=== PATIENT | female | born 1960 | race Caucasian/White ===

== ENCOUNTER → 2019-04-22 11:19 | Outpatient (BNVA) | payer OTHER, MEDICARE, SELFPAY | PROVIDERS: Family Provider Family Medicine; PCP Family Medicine; Visit Provider Internal Medicine Rheumatology | DX: L40.50 Arthropathic psoriasis, unspecified (principal); L40.0 Psoriasis vulgaris; Z79.899 Other long term (current) drug therapy; I10 Essential (primary) hypertension; F17.210 Nicotine dependence, cigarettes, uncomplicated | CPT/HCPCS: 99213; 99214 ==

== ENCOUNTER 2019-10-14 09:17 | Emergency (ER) | payer OTHER, MEDICARE, SELFPAY ==
[2019-10-14] VITALS (7 sets, daily range): BP systolic 157–180; BP diastolic 87–105; PULSE 61–71; RESP 14–32; TEMP 36.7; O2SAT 96–100; BMI 29.0
--- NOTE | 2019-10-14 09:51 | CT_ITS ---
WS: [id number] CT LUMBAR SPINE, noncontrast. HISTORY: R leg radiculopathy TECHNIQUE: Contiguous 2.5 mm axial imaging are performed. Sagittal and coronal reformats are submitte d and reviewed. All CT scans at [facility] use at least one of these dose optimization te chniques: automated exposure control; mA and/or kV adjustment per patient size (includes targeted exa ms where dose is matched to clinical indication); or iterative reconstruction. IV contrast: None DLP: 2631.7 mGy.cm COMPARISON: None available. Straightening of the normal lumbar lordosis. No vertebral body fractures. Disc desiccation and vacuum disc phenomenon at L1-2, L2-3, L4-5 and L5-S1. Endplate sclerotic changes are most significant at L4 and L5 and S1. L1-2: Annular disc bulging without stenosis. L2-3: Small vertebral body osteophytes with mild annular disc bulge. Slightly asymmetric to the LEFT without nerve root contact. L3-4: Diffuse annular disc bulging asymmetric to the LEFT. LEFT subarticular disc protrusion contacti ng the L4 nerve root. Mild bilateral foraminal narrowing and central stenosis. L4-5: Diffuse annular disc bulging and mild osteophytic ridging. Disc and osteophyte encroaching into the RIGHT foramen causing significant RIGHT foraminal stenosis with moderate stenosis on the LEFT. M ild central stenosis. L5-S1: Diffuse osteophytic ridging. Severe facet joint arthritis. Combination of findings is causing severe bilateral foraminal stenosis. Complete effacement loss of the normal fat in the foramen. Small osteophyte encroaching upon the LEFT S1 nerve root. Moderate atherosclerosis aorta with no aneurysm. CT/CT lumbar spine wo con* [id number] IMPRESSION: 1. No acute lumbar spine fracture. 2. Severe bilateral foraminal stenosis at L5-S1 due to disc osteophyte disease . 3. Mild contact on the LEFT S1 nerve root by osteophyte. 4. Mild central stenosis with moderate to severe bilateral foraminal stenosis at L4-5, greatest on the RIGHT. 5. Mild bilateral foraminal and central stenosis at L3-4.
--- NOTE | 2019-10-14 10:11 | PC.NURSE ---
pt back from CT by stretcher with tech
[2019-10-14 10:24] LABS: Basophils # 0.1 10^3/uL (0.0-0.1); Basophils % 0.5 %; Eosinophils # 0.2 10^3/uL (0.0-0.8); Eosinophils % 1.7 %; Hematocrit 39.6 % (37.0-47.0); Hemoglobin 13.3 g/dL (11.5-15.3); Lymphocytes # 2.3 10^3/uL (0.8-4.8); Lymphocytes % 16.5 %; Mean Corpuscular HGB Conc 33.6 g/dL (30.0-36.0); Mean Corpuscular Hemoglobin 30.5 pg (28.0-34.0); Mean Corpuscular Volume 90.8 fL (81-99); Monocytes # 0.9 10^3/uL (0.2-0.9); Monocytes % 6.4 %; Neutrophils # 10.16 10^3/uL (1.8-7.7); Neutrophils % 74.4 %; Nucleated Red Blood Cells % 0 %; Platelet Count 250 10^3/cmm (130-400); Red Blood Count 4.36 10^6/uL (4.1-5.3); Red Cell Distribution Width 13.2 % (12.1-15.1); White Blood Count 13.7 10^3/uL (4.0-10.0)
[2019-10-14 10:26] LABS: Blood Urine Neg (Negative); Glucose Urine UA Norm (Normal); Ketones Urine Negative (Negative); Nitrate Urine Positive (Negative); Protein Urine Neg (Negative); Urine Appearance Hazy (CLEAR); Urine Color Yellow (Yellow); pH Urine 6 (5-7)
[2019-10-14 10:27] LABS: Add Urine Microscopic? YES; Bilirubin Urine Neg (NEGATIVE); Leukocyte Esterase Urine Negative (Negative); Urobilinogen Urine Neg (Negative)
--- NOTE | 2019-10-14 10:30 | W.ED.NEUROSD ---
HPI - Neuro Symptoms/Deficit General: Chief Complaint: Neuro Symptoms/Deficit Stated Complaint: NUMBNESS IN LEGS/POSS LOW POTASSIUM Time Seen by Provider: 10/14/19 09:22 History of Present Illness: HPI Narrative: 59-year-old female who presents to the emergency room with complaint of having cramping that started yesterday in her lower extremities she still has some numbness in her right leg difficulty with dorsal plantar flexion strength she also has noticed she has unable to sense when she is urinating but she has feels like she has been able to empty her bladder completely she denies any fecal incontinence she has noticed some weakness in her lower extremities well she denies any dysuria urgency or frequency no recent trauma to the low back she came in stating she was convinced that it was a low potassium that was causing all her symptoms. Onset (ago): day(s) Location: right leg Severity: moderate Quality: weak, numb and tingling Relieving factors: none Exacerbating factors: none Context: gradual onset Associated symptoms: Deny chest pain, cough, diaphoresis, fevers/chills, headache(s), anorexia, malaise, nausea, seizures, short of breath, syncope, tingling, vertigo, vomiting, weakness or other Treatments Prior to Arrival: none Review of Systems Const: Denies: malaise or diaphoresis ENMT: Denies: throat pain, ear or mastoid pain, nasal discharge or nasal congestion Card: Denies: chest pain or syncope Resp: Denies: dyspnea, productive cough or non-productive cough GI: Denies: nausea or vomiting : Denies: flank pain, difficulty voiding, dysuria, urinary frequency or urinary urgency Skin/Breast: Denies: rash or pruritus Neuro: Denies: headache(s) or vertigo [facility] ED PFSH: Medical History Immunosuppression Psoriasis, unspecified Psoriatic arthritis Surgical History H/O total knee replacement History of revision of total knee arthroplasty 08/20/18 Social History Smoking and tobacco status: current every day smoker Alcohol intake: never History of recent travel: No Physical Exam Const: COMMON NORMALS: average body habitus, patient oriented x3 and alert GENERAL APPEARANCE: cooperative, comfortable, well kempt and well developed NUTRITIONAL APPEARANCE: obese ORIENTATION/CONSCIOUSNESS: Yes awake, Yes oriented to person and Yes oriented to place HENMT: COMMON NORMALS: normocephalic and atraumatic HEAD & SCALP: normocephalic and atraumatic Eye: COMMON NORMALS: Equal, round and reactive pupils present, EOMs intact bilaterally, conjunctivae normal and no scleral icterus CONJUNCTIVA: Yes conjunctivae normal PUPIL: Yes Equal, round and reactive pupils present Neck/C-Spine: COMMON NORMALS: full ROM, no lymphadenopathy, supple, no meningeal signs and Thyroid normal THYROID: Thyroid normal and asymmetrical Lymph: LYMPHATIC: no lymphadenopathy noted Resp: COMMON NORMALS: normal respiratory effort, No retractions, No use of accessory muscles and clear to auscultation bilaterally AUSCULTATION: clear to auscultation bilaterally Cardio: COMMON NORMALS: regular rate and regular rhythm RATE: regular rate RHYTHM: regular rhythm HEART SOUNDS: no murmurs GI: COMMON NORMALS: Normal to inspection, nondistended, normoactive bowel sounds present, Soft to palpation and No hepatosplenomegaly present PALPATION: Yes Soft to palpation and Yes No hepatosplenomegaly present : COMMON NORMALS: Yes no CVA tenderness BLADDER/KIDNEY EXAM: Yes no CVA tenderness Back/Pelvis: COMMON NORMALS: no CVA tenderness LUMBAR SPINE/LOWER BACK: Yes normal to inspection Extremity: COMMON NORMALS: no clubbing, cyanosis or edema, no calf tenderness and no pedal edema Neuro: COMMON NORMALS: patient oriented x3 SENSORIUM/ORIENTATION: Yes alert, Yes oriented to person and Yes oriented to place MENINGEAL SIGNS: Yes no meningeal signs OTHER: Difficult to elicit lower extremity DTRs at the patellar tendon no significant dorsi or plantarflexion strength on the right against resistance patient has 5 out of 5 strength on the left sensation, sensation diminished on the right. Patient has 0 of 5 strength with flexion or extension at the knee. 3 of 5 strength at the hip flexors. Psych: APPEARANCE: Yes well kempt Skin: COMMON NORMALS: no rashes or lesions noted and turgor normal GENERAL SKIN EXAM: no rashes or lesions noted and turgor normal Course Vital Signs: Vital signs: Vital Signs Temperature 98.1 F 10/13 09:25 Pulse Rate 71 08/18/20 16:31 Respiratory Rate 14 10/14/19 16:31 Blood Pressure 157/87 10/14/19 16:31 Pulse Oximetry 98 10/14/19 16:31 MDM - Neuro Symptoms/Deficit MDM Narrative: Medical decision making narrative: Patient is relatively minimal pain but is very significant functional loss and in a very short period of time essentially she has no functional use at this point of her left leg. Initially we try to get her transferred to [facility] or [facility] they are on divert because of COVID has been MICU faxed to their census. Ultimately we were able to get neurosurgery at [facility] and will do an [facility] ED transfer. She was given oral potassium for her hypokalemia. Lab Data: Labs: Lab Results 10/14/19 10/14/19 10/14/19 Range/Units 09:39 10:10 10:10 WBC 13.7 H (4.0-10.0) 10^3/ uL RBC 4.36 (4.1-5.3) 10^6/u L Hgb 13.3 (11.5-15.3) g/dL Hct 39.6 (37.0-47.0) % MCV 90.8 (81-99) fL MCH 30.5 (28.0-34.0) pg MCHC 33.6 (30.0-36.0) g/dL RDW 13.2 (12.1-15.1) % Plt Count 250 (130-400) 10^3/c mm MPV 11.0 H (7.4-10.4) fL Neut % (Auto) 74.4 % Lymph % (Auto) 16.5 % Cascade % (Auto) 6.4 % Eos % (Auto) 1.7 % Baso % (Auto) 0.5 % Neut # (Auto) 10.16 H (1.8-7.7) 10^3/u L Lymph # (Auto) 2.3 (0.8-4.8) 10^3/u L Cascade # (Auto) 0.9 (0.2-0.9) 10^3/u L Eos # (Auto) 0.2 (0.0-0.8) 10^3/u L Baso # (Auto) 0.1 (0.0-0.1) 10^3/u L Nucleated RBC % (a uto) 0 % Nucleated RBCs # 0.0 /100WBC Sodium 136 (136-145) mmol/L Potassium 2.9 L (3.5-5.1) mmol/L Chloride 103 (98-107) mmol/L Carbon Dioxide 20 L (22-29) mmol/L Anion Gap 15.9 (5-19) BUN 19 (8-23) mg/dL Creatinine 0.8 (0.5-0.9) mg/dL GFR Calculation 72.9 L (90-130) mL/min Glucose 112 (65-115) mg/dL Calculated Osmolal ity 279 L (285-295) mOsm/k g Calcium 9.4 (8.5-10.5) mg/dL Total Bilirubin 0.2 (0.15-1.2) mg/dL AST 18 (0-32) U/L ALT 16 (0-33) U/L Alkaline Phosphata se 100 (35-105) IU/L Total Protein 8.1 (6.6-8.7) g/dL Albumin 4.3 (3.5-5.2) g/dL Globulin 3.8 (1.3-4.6) g/dL Urine Color Yellow (Yellow) Urine Appearance Hazy A (CLEAR) Urine pH 6 (5-7) Ur Specific Gravit y 1.010 (1.005-1.030) Urine Protein Neg (Negative) Urine Glucose (UA) Norm (Normal) Urine Ketones Negative (Negative) Urine Blood Neg (Negative) Urine Nitrate Positive H (Negative) Urine Bilirubin Neg (NEGATIVE) Urine Urobilinogen Neg (Negative) mg/dL Ur Leukocyte Carolyn ase Negative (Negative) Urine RBC None (0-2) /hpf Urine WBC 0-4 H (0-5) /hpf Ur Squamous Epith Cells 10-15 H (0-5) Amorphous Sediment Not Reportable Urine Bacteria 4+ H (NONE) Discharge Plan Discharge Patient Disposition: Transfer to ED Clinical Impression: Acute right lumbar radiculopathy Prescriptions: No Action Otezla 30 mg tablet 30 mg PO BID Qty: 180 RF: 1 betamethasone valerate 0.12 % foam 1 applic TOPICAL BID PRN (Reason: unknown) RF: 0 clobetasol 0.05 % cream 1 applic TOPICAL BID PRN (Reason: unknown) RF: 0 mupirocin calcium 2 % cream 1 applic TOPICAL TID PRN (Reason: unknown) RF: 0 clonidine HCl 0.1 mg tablet See Rx Instructions .ROUTE .COMPLEX RF: 0 amlodipine 5 mg tablet 5 mg PO BID RF: 0 hydrochlorothiazide 12.5 mg tablet 25 mg PO DAILY RF: 0 ibuprofen 200 mg capsule 800 mg PO Q8H PRN (Reason: Pain) RF: 0 lisinopril 20 mg tablet 20 mg PO BID RF: 0 duloxetine [Cymbalta] 60 mg capsule,delayed release(DR/EC) 60 mg PO DAILY RF: 0 estradiol 1 mg tablet 1 mg PO DAILY RF: 0 potassium chloride 10 mEq capsule, extended release 10 - 30 meq PO DAILY RF: 0 metoprolol tartrate 50 mg tablet 100 mg PO BID RF: 0 Aspir-81 81 mg Tablet,Delayed Release (Dr/Ec) 81 mg PO DAILY RF: 0 Benadryl See Rx Instructions .ROUTE .COMPLEX RF: 0 Tums See Rx Instructions .ROUTE .COMPLEX RF: 0 Referrals: Andra Marshall MD [Primary Care Provider] - Interventions: ED Discharge Assessment Last Done: 10/14/19 15:45 ED Charges Last Done: 10/14/19 15:45 Discharge Date/Time: 10/14/19 17:06 Coding Level of Care Code ED Telecommunications Facility Examiner for Chg Fwd Exam Comprehensive
[2019-10-14 10:33] LABS: Add Urine Culture? Yes; Bacteria Urine 4+; WBC Urine 0-4 /hpf (0-5)
[2019-10-14 10:39] LABS: Alanine Aminotransferase 16 U/L (0-33); Albumin Level 4.3 g/dL (3.5-5.2); Alkaline Phosphatase 100 IU/L (35-105); Anion Gap 15.9 (5-19); Aspartate Amino Transferase 18 U/L (0-32); Blood Urea Nitrogen 19 mg/dL (8-23); Calcium 9.4 mg/dL (8.5-10.5); Carbon Dioxide 20 mmol/L (22-29); Chloride 103 mmol/L (98-107); Globulin 3.8 g/dL (1.3-4.6); Glomerular Filtration Rate 72.9 mL/min (90-130); Glucose 112 mg/dL (65-115); Osmolality Calculated 279 mOsm/kg (285-295); Sodium 136 mmol/L (136-145); Total Bilirubin 0.2 mg/dL (0.15-1.2); Total Protein 8.1 g/dL (6.6-8.7)
[2019-10-14 10:48] LABS: Potassium 2.9 mmol/L (3.5-5.1)
[2019-10-14] MEDS: potassium chloride oral liq 20 mEq/15 mL UDC 60 MEQ PO (11:08)
[2019-10-14] MEDS: cefTRIAXone 1,000 MG in sodium chloride 0.9% (plus) 50 ML 100 MG IV (11:10)
[2019-10-14] MEDS: ketorolac 30 mg/mL INJ IVP (13:13)
[2019-10-14] MEDS: ondansetron 2 mg/ML SDV 2 mL 4 MG IVP (13:13)
[2019-10-14] MEDS: morphine 4 mg/mL SDV 1 mL IVP (13:13)
[2019-10-14] MEDS: dexamethasone 10 mg/mL INJ IVP (13:13)
[2019-10-14] MEDS: nicotine 21 mg Patch 1 PATCH TRANSDERMA (16:02)
[2019-10-14] MEDS: morphine 4 mg/mL SDV 1 mL 6 MG IVP (16:03)
== END 2019-10-14 17:06 ==
PROVIDERS: Emergency Provider Family Medicine; PCP Family Medicine
DX: M54.16 Radiculopathy, lumbar region (principal); Z79.82 Long term (current) use of aspirin; F17.210 Nicotine dependence, cigarettes, uncomplicated
CPT/HCPCS: 12345; 36415; 51798; 72131; 80053; 81001; 85025; 87077; 87086; 87186; 96365; 96375; 96376; 97162; 99283; 99284; J0696; J1100; J1885; J2270; J2405

== ENCOUNTER 2019-12-08 09:31 | Outpatient (RCR) | payer OTHER, MEDICARE, SELFPAY | END 2019-12-27 23:59 | disposition home or self-care (01) | LOC: SPT 09:31 | PROVIDERS: PCP Family Medicine; Referring Provider Orthopaedic Surgery; Visit Provider Orthopaedic Surgery | DX: M21.371 Foot drop, right foot (principal) | CPT/HCPCS: 97110; 97112; 97162 ==

== ENCOUNTER 2019-12-28 06:00 | Outpatient (RCR) | payer OTHER, MEDICARE, SELFPAY | END 2020-01-26 23:59 | disposition home or self-care (01) | LOC: SPT 06:00 | PROVIDERS: PCP Family Medicine; Referring Provider Orthopaedic Surgery; Visit Provider Orthopaedic Surgery | DX: Z09 Encounter for follow-up examination after completed treatment for conditions other than malignant neoplasm (principal); M21.371 Foot drop, right foot | CPT/HCPCS: 97110 ==

== ENCOUNTER 2020-01-27 06:00 | Outpatient (RCR) | payer OTHER, MEDICARE, SELFPAY | END 2020-02-26 23:59 | disposition home or self-care (01) | LOC: SPT 06:00 | PROVIDERS: PCP Family Medicine; Referring Provider Orthopaedic Surgery; Visit Provider Orthopaedic Surgery | DX: Z09 Encounter for follow-up examination after completed treatment for conditions other than malignant neoplasm (principal) | CPT/HCPCS: 97110 ==

== ENCOUNTER 2020-02-27 06:00 | Outpatient (RCR) | payer OTHER, MEDICARE, SELFPAY | END 2020-03-28 23:59 | disposition home or self-care (01) | LOC: SPT 06:00 | PROVIDERS: PCP Family Medicine; Referring Provider Orthopaedic Surgery; Visit Provider Orthopaedic Surgery | DX: Z09 Encounter for follow-up examination after completed treatment for conditions other than malignant neoplasm (principal) | CPT/HCPCS: 97110 ==

== ENCOUNTER 2020-03-29 16:39 | Outpatient (RCR) | payer OTHER, MEDICARE, SELFPAY | END 2020-04-25 23:59 | disposition home or self-care (01) | LOC: SPT 16:39 | PROVIDERS: PCP Family Medicine; Referring Provider Orthopaedic Surgery; Visit Provider Orthopaedic Surgery | DX: M21.371 Foot drop, right foot (principal) | CPT/HCPCS: 97110 ==

== ENCOUNTER 2020-04-26 06:00 | Outpatient (RCR) | payer OTHER, MEDICARE, SELFPAY | END 2020-05-26 23:59 | disposition home or self-care (01) | LOC: SPT 06:00 | PROVIDERS: PCP Family Medicine; Referring Provider Orthopaedic Surgery; Visit Provider Orthopaedic Surgery | DX: Z47.89 Encounter for other orthopedic aftercare (principal); Z09 Encounter for follow-up examination after completed treatment for conditions other than malignant neoplasm | CPT/HCPCS: 97110 ==

== ENCOUNTER → 2021-06-27 12:10 | Outpatient (BNVA) | payer MEDICARE, SELFPAY | PROVIDERS: PCP Family Medicine; Referring Provider Family Medicine; Visit Provider Surgery | DX: D64.9 Anemia, unspecified (principal) | CPT/HCPCS: 99204 ==

== ENCOUNTER → 2021-07-01 09:24 | Outpatient (BNVA) | payer MEDICARE, SELFPAY | PROVIDERS: PCP Family Medicine; Visit Provider Internal Medicine | DX: L40.50 Arthropathic psoriasis, unspecified (principal); Z11.59 Encounter for screening for other viral diseases; Z11.1 Encounter for screening for respiratory tuberculosis; F17.210 Nicotine dependence, cigarettes, uncomplicated | CPT/HCPCS: 80053; 85025; 86480; 86704; 86803; 87340; 99203 ==

== ENCOUNTER 2021-07-04 08:24 | Day surgery (SDC) | payer MEDICARE, SELFPAY ==
[2021-06-30 13:15] VITALS: BMI 33.6
[2021-07-04 08:47] VITALS: BP 164/93; PULSE 64; RESP 18; TEMP 36.2; O2SAT 99
[2021-07-04] MEDS: sodium chloride 0.9% 1,000 ML 30 ML IV (08:52)
--- NOTE | 2021-07-04 08:54 | P.HP_ITS ---
Same Day Surgery H&P Indication for Procedure/HPI DATE OF PROCEDURE: July 04, 2021 CHIEF COMPLAINT/INDICATIONFOR SURGICAL PROCEDURE: Anemia PREOP DIAGNOSIS: diagnostic PLANNED PROCEDURE: Operation Date: 07/04/21 09:00 Proposed Procedures p EGD [id number] 66055 D50.9(Not Applicable) - Sandor Hope MD s Colonoscopy(Not Applicable) - Sandor Hope MD Medications/Allergies* Home Medications Medication Instructions Recorded Confirmed Type duloxetine 60 mg capsule,delayed 60 mg PO DAILY 04/16/19 07/04/21 History release (Cymbalta) estradiol 1 mg tablet 1 mg PO DAILY 04/16/19 07/04/21 History lisinopril 20 mg tablet 20 mg PO BID 04/16/19 07/04/21 History multivitamin 1 tab PO DAILY 06/30/21 07/04/21 History Benadryl 25 mg PO BID PRN 07/01/21 07/04/21 History clonidine HCl 0.1 mg tablet 0.1 mg PO BID tab 07/01/21 07/04/21 History furosemide 40 mg tablet 40 mg PO DAILY 07/01/21 07/04/21 History gabapentin 300 mg capsule 300 mg PO BID 07/01/21 07/04/21 History metoprolol tartrate 100 mg tablet 100 mg PO BID 07/01/21 07/04/21 History potassium chloride 10 mEq 40 meq PO DAILY cap 07/01/21 07/04/21 History capsule,extended release aspirin 81 mg tablet,delayed 81 mg PO DAILY 07/04/21 07/04/21 History release Allergies/Adverse Reactions Allergy/AdvReac Type Severity Reaction Status Date / Time meloxicam Allergy Intermediate nightmares Verified 07/01/21 09:55 celecoxib [From Celebrex] AdvReac Intermediate headache,ni Verified 07/01/21 09:55 ghtmares Current Medications: Generic Name Dose Route Start Last Admin Trade Name Freq PRN Reason Stop Dose Admin Sodium Chloride 1,000 mls @ 30 mls/hr 07/04/21 08:30 07/04/21 08:52 Sodium Chloride 0.9% IV 07/05/21 08:29 30 mls/hr .Q24H GAETANO Administration Pertinent History/Comorbid Conditions* Medical History (Updated 07/01/21 @ 10:27 by Elena Moreno MD) Cauda equina syndrome Immunosuppression Psoriasis, unspecified Psoriatic arthritis Surgical History (Updated 06/27/21 @ 12:32 by Sandor Hope MD) H/O total knee replacement History of back surgery History of colonoscopy 2 years History of hysterectomy History of revision of total knee arthroplasty 08/20/18 Family History (Updated 07/01/21 @ 10:03 by Ana Hayes LPN) CAD (coronary artery disease) Hyperlipidemia Hypertension Stroke Denies family history of Rheumatoid arthritis Diabetes Lupus Chronic kidney disease (CKD) Cancer Social History Smoking and tobacco status: current every day smoker cigarettes Packs smoked per day: 1 Alcohol intake: former History of recent travel: No Pertinent Exam Findings alert, oriented x 3 and regular rate & rhythm Recommendations Surgery/Procedure today Coding Level of Care Code Acute Warehouse Assembly Worker for Saira Forbes
--- NOTE | 2021-07-04 10:37 | P.ANESASSM_ITS ---
Pre-Anesthetic Assessment Height/Weight: Height 1.6 m Weight 86.183 kg Temp Pulse Resp BP Pulse Ox 97.1 F L 64 18 164/93 99 07/04/21 08:47 07/04/21 08:47 07/04/21 08:47 07/04/21 08:47 07/04/21 08:47 Preop Diagnosis: diagnostic Operation Date: 07/04/21 09:00 Proposed Procedures p EGD [id number] D50.9(Not Applicable) - Sandor Hope MD s Colonoscopy(Not Applicable) - Sandor Hope MD Familial anesthetic complications: None Was Beta Chintan taken within 24 hours: Yes Was Clonidine taken within 24 hours: Yes Last intake: Intake Last Liquid Date 07/03/21 Last Liquid Time 22:00 Last Solid Date 07/02/21 Last Solid Time 18:00 Social Tobacco and No alcohol Exam alert, oriented x 3 and regular rate & rhythm Airway Submandibular: within normal limits Cervical ROM: within normal limits Mallampati: Class II Dentition: false Pulmonary Chronic Obstructive Pulmonary Disease CV/HEM Hypertension Metabolic Hyperlipidemia and Morbid Obesity [facility] Psoriatic arthritis Anesthetic Plan ASA status: 3 Anesthesia: MAC Medications/Allergies Home Medications Medication Instructions Recorded Confirmed Last Taken Type duloxetine 60 mg capsule,delayed 60 mg PO DAILY 04/16/19 07/04/21 07/03/21 History release (Cymbalta) estradiol 1 mg tablet 1 mg PO DAILY 04/16/19 07/04/21 07/03/21 History lisinopril 20 mg tablet 20 mg PO BID 04/16/19 07/04/21 07/03/21 History multivitamin 1 tab PO DAILY 06/30/21 07/04/21 07/03/21 History Benadryl 25 mg PO BID PRN 07/01/21 07/04/21 07/03/21 History clonidine HCl 0.1 mg tablet 0.1 mg PO BID tab 07/01/21 07/04/21 07/03/21 History furosemide 40 mg tablet 40 mg PO DAILY 07/01/21 07/04/21 07/03/21 History gabapentin 300 mg capsule 300 mg PO BID 07/01/21 07/04/21 07/03/21 History metoprolol tartrate 100 mg tablet 100 mg PO BID 07/01/21 07/04/21 07/04/21 History potassium chloride 10 mEq 40 meq PO DAILY cap 07/01/21 07/04/21 07/03/21 History capsule,extended release aspirin 81 mg tablet,delayed 81 mg PO DAILY 07/04/21 07/04/21 Unknown History release Allergies Allergy/AdvReac Type Severity Reaction Status Date / Time meloxicam Allergy Intermediate nightmares Verified 07/01/21 09:55 celecoxib [From Celebrex] AdvReac Intermediate headache,ni Verified 07/01/21 09:55 maryellen Current Medications Generic Name Dose Route Start Last Admin Trade Name Freq PRN Reason Stop Dose Admin Sodium Chloride 1,000 mls @ 30 mls/hr 07/04/21 08:30 07/04/21 08:52 Sodium Chloride 0.9% IV 07/05/21 08:29 30 mls/hr .Q24H GAETANO Administration PFSH Anesthesia Medical History (Updated 07/01/21 @ 10:27 by Elena Moreno MD) Cauda equina syndrome Immunosuppression Psoriasis, unspecified Psoriatic arthritis Surgical History H/O total knee replacement History of back surgery History of colonoscopy 2 years History of hysterectomy History of revision of total knee arthroplasty 08/20/18 Family History (Updated 07/01/21 @ 10:03 by Ana Hayes LPN) Other CAD (coronary artery disease) Hyperlipidemia Hypertension Stroke Denies family history of Rheumatoid arthritis Diabetes Lupus Chronic kidney disease (CKD) Cancer Social History (Updated 07/01/21 @ 10:02 by Ana Hayes LPN) Smoking and tobacco status: current every day smoker cigarettes Packs smoked per day: 1 Alcohol intake: former History of recent travel: No Data Anesthesia Cardiac Studies: No Data to Display
[2021-07-04 10:40] VITALS: BP 108/62; PULSE 60; RESP 12; TEMP 36.1; O2SAT 100
[2021-07-04 10:57] VITALS: BP 119/70; PULSE 56; RESP 16; O2SAT 100
--- NOTE | 2021-07-04 13:31 | ANE.PACU2 ---
Inpatient post-anesthesia follow up: Airway intact: Yes Vital signs: Temperature 97 F Pulse Rate 56 Respiratory Rate 16 Blood Pressure 119/70 Pulse Oximetry 100 Oxygen Delivery Me thod Room Air Oxygen Flow Rate Fraction of Inspir ed Oxygen Hydration adequate: Yes Nausea and vomiting: No Pain level: 1 Mental status: Baseline
== END 2021-07-04 11:15 | disposition home or self-care (01) ==
PROVIDERS: PCP Family Medicine; Visit Provider Surgery
PROC: 0DJ08ZZ Inspection of Upper Intestinal Tract, Via Natural or Artificial Opening Endoscopic (ICD-10-PCS; CPT 43235; principal; 2021-07-04 09:00)
PROC: 0DJD8ZZ Inspection of Lower Intestinal Tract, Via Natural or Artificial Opening Endoscopic (ICD-10-PCS; CPT 45378; 2021-07-04 09:00)
DX: D50.9 Iron deficiency anemia, unspecified (principal); Z79.82 Long term (current) use of aspirin; Z82.49 Family history of ischemic heart disease and other diseases of the circulatory system; Z83.3 Family history of diabetes mellitus; Z82.3 Family history of stroke; F17.210 Nicotine dependence, cigarettes, uncomplicated; J44.9 Chronic obstructive pulmonary disease, unspecified; E78.5 Hyperlipidemia, unspecified; E66.01 Morbid (severe) obesity due to excess calories; Z68.33 Body mass index [BMI] 33.0-33.9, adult; L40.50 Arthropathic psoriasis, unspecified
CPT/HCPCS: 43235; 45378; J2704; J7030

== ENCOUNTER → 2021-07-06 15:11 | Outpatient (BNVA) | payer MEDICARE, SELFPAY | PROVIDERS: PCP Family Medicine; Visit Provider Internal Medicine | DX: L40.50 Arthropathic psoriasis, unspecified (principal); D89.9 Disorder involving the immune mechanism, unspecified; F17.210 Nicotine dependence, cigarettes, uncomplicated | CPT/HCPCS: 99214 ==

== ENCOUNTER 2021-07-18 09:07 | Outpatient (CLI) | payer MEDICARE, SELFPAY ==
--- NOTE | 2021-07-18 09:12 | MM_ITS ---
WS: [id number] VIEWS: MLO and CC views both breasts. 3D digital tomosynthesis is also included in this exam. Comparison made with prior exam of 05/28/2017, 12/17/2018, Findings: 1 cm lobulated nodule noted in the medial left breast at mid depth. No architectural distortion or andrews spicious calcification. Remaining aspects of both breasts show no change. Scattered fibroglandular d ensities. Regional ultrasound as well as compression spot imaging of the left breast is suggested for further workup. MM/[id number] Impression: BI-RADS: 0-Incomplete: Need additional imaging evaluation FOLLOW-UP: See Report This mammogram was also analyzed by the Computer Aided Detection System R2 Imag e Policy Change Clerks Supervisor.
== END 2021-07-18 09:08 | disposition home or self-care (01) ==
PROVIDERS: PCP Family Medicine; Visit Provider Family Medicine
DX: Z12.31 Encounter for screening mammogram for malignant neoplasm of breast (principal)
CPT/HCPCS: 77063; 77067

== ENCOUNTER 2021-08-10 10:31 | Outpatient (CLI) | payer MEDICARE, SELFPAY ==
--- NOTE | 2021-08-10 10:40 | MM_ITS ---
WS: [id number] Left breast diagnostic 3D tomosynthesis digital mammogram, 08/10/2021 Clinical Data: ABNORMAL MAMMO Comparison: 07/18/2021, 12/17/2018, 06/11/2017, 05/28/2017. Findings: Spot imaging of the left breast in the CC and MLO oh projection was obtained. Additional imaging of t he left breast in the ML projection was obtained. The 1 cm density seen on the prior study is noted o nly on the MLO spot. On the tomosynthesis this density measured 0.5 cm and appear to have a lobulated well-defined border without calcifications. Its density was similar to that of surrounding normal br east tissue. MM/[place] [id number] Impression: 1. Small 0.5 cm lesion seen only on the MLO spot compression views which had a benign appearance. 2. Left breast ultrasound will be performed. BIRADS: 2-Benign FOLLOW UP: See Report The CAD sample checker was used.
--- NOTE | 2021-08-10 11:13 | US_ITS ---
WS: [id number] Left breast ultrasound, 08/10/2021 Clinical Data: LT BR NODULE Comparison: Mammogram, 08/10/2021 Findings: At the 9:00 position there were 2 small anechoic regions, 1 2 cm from the nipple and the other 3 cm f rom the nipple. Both had well-defined borders and the lesion 3 cm from the nipple had the appearance of a complex cyst measuring 0.29 x 0.9 x 0 6.61 cm. This small lesion 2 cm from the nipple measuring 0.21 x 0.31 x 0.6 cm had the appearance of a duct. US/US breast LT limited* [id number] Impression: 1. Benign lesions 2 and 3 cm from the nipple at the 9:00 position of the left b reast. 2. Recommend return to annual screening mammograms. BIRADS: 2-Benign FOLLOW UP: 1 Year Follow-up
== END 2021-08-10 10:32 | disposition home or self-care (01) ==
LOC: RAD 10:33
PROVIDERS: PCP Family Medicine; Visit Provider Family Medicine
DX: N64.9 Disorder of breast, unspecified (principal); R92.8 Other abnormal and inconclusive findings on diagnostic imaging of breast
CPT/HCPCS: 76642; 77061

== ENCOUNTER 2022-09-06 10:46 | Outpatient (CLI) | payer MEDICARE, SELFPAY ==
--- NOTE | 2022-09-06 | MM_ITS ---
WS: [id number] BILATERAL 3D TOMOSYNTHESIS DIGITAL SCREENING MAMMOGRAPHY WITH CAD CLINICAL INFORMATION: SCREENING HISTORY: Screening mammogram. LEFT Breast discharge COMPARISON: 2021 TECHNIQUE: Bilateral CC and MLO views. FINDINGS: Scattered fibroglandular densities bilaterally. No suspicious focal mass, asymmetry, calcifications, or architectural distortion. No evidence of malignancy. A few incidental punctate calcifications. MM/[place] [id number] IMPRESSION: BI-RADS: 2-Benign FOLLOW UP: 1 Year Follow-up Recommend return to annual screening mammography.
== END 2022-09-06 10:47 | disposition home or self-care (01) ==
LOC: RAD 10:51 → MOBLMAM 10:56
PROVIDERS: PCP Family Medicine; Visit Provider Family Medicine
DX: Z12.31 Encounter for screening mammogram for malignant neoplasm of breast (principal)
CPT/HCPCS: 77063; 77067

== ENCOUNTER 2022-10-12 09:49 | Outpatient (CLI) | payer MEDICARE, SELFPAY ==
--- NOTE | 2022-10-12 09:58 | MM_ITS ---
WS: [id number] LEFT 3D TOMOSYNTHESIS DIGITAL MAMMOGRAPHY WITH CAD CLINICAL INFORMATION: ABNORMAL MAMMO HISTORY: Reported left nipple discharge COMPARISON: 09/06/2022 TECHNIQUE: 2 views of the left breast were obtained. FINDINGS: Scattered fibroglandular densities of the left breast. Parenchymal pattern appears stable. A few inci dental punctate calcifications. No definite subareolar parenchymal abnormalities. Ultrasound of this area is pending. ULTRASOUND BREAST LEFT TECHNIQUE: Ultrasound left breast focused area of concern. CLINICAL INFORMATION: ABNORMAL MAMMO FINDINGS: Ultrasound left breast at the areola. No suspicious cystic or solid lesions. Mild ductal ectasia seen posterior to the areola. No intraductal lesions. No suspicious lesions to target for biopsy. Recomme nd return to annual screening mammography. IMPRESSION: MM/[place] [id number] BI-RADS: 2-Benign FOLLOW UP: 1 Year Follow-up Recommend return to annual screening mammography.
== END 2022-10-12 09:50 | disposition home or self-care (01) ==
LOC: RAD 09:52
PROVIDERS: PCP Family Medicine; Visit Provider Family Medicine
DX: R92.8 Other abnormal and inconclusive findings on diagnostic imaging of breast (principal)
CPT/HCPCS: 76642; 77061; G0279

== ENCOUNTER 2023-01-16 11:02 | Outpatient (CLI) | payer MEDICARE, SELFPAY ==
--- NOTE | 2023-01-16 11:00 | MR_ITS ---
WS: [id number] MRI LUMBAR SPINE NONCONTRAST TECHNIQUE: Sagittal T1, T2 and STIR imaging. Axial T1 and T2 imaging. CLINICAL INFORMATION: M54.50 - Low back pain, unspecified COMPARISON: CT 10/14/2019 FINDINGS: Counting performed from the craniocervical junction. Only 4 nonrib-bearing lumbar type vertebral bodi es. These are labeled L1-L4. L5 is sacralized. Recommend plain film correlation prior to surgical int ervention. Note this differs from the prior numbering scheme on the CT lumbar spine 10/14/2019. Postop erative changes laminectomy defects lower lumbar spine. L1-L2: Mild disc bulging with osteophytic ridging. Slight effacement of ventral thecal sac. Mild face t arthropathy. Foramen are patent. L2-L3: Broad-based central disc protrusion. Moderate central canal stenosis. Impingement traversing L 3 nerve roots bilaterally. Moderate facet arthropathy. LEFT facet effusion. Moderate to severe bilate ral foraminal narrowing. L3-L4: Laminectomy defects. Spinal canal is patent. Moderate facet arthropathy. Mild disc bulge with osteophytic ridging. Mild to moderate bilateral foraminal narrowing. L4-L5: Mild disc bulging with endplate ridging. Slight effacement of ventral thecal sac. Moderate fac et arthropathy. Moderate to severe bilateral bony foraminal narrowing. L5-S1: L5 is sacralized. Spinal canal and foramen are patent. Visualized pelvic bony structures: Normal. Paravertebral soft tissues: Normal. Small bilateral renal cysts. IMPRESSION: 1. Counting performed from the craniocervical junction. Only 4 nonrib-bearing lumbar type vertebral bodies. These are labeled L1-L4. L5 is sacralized. 2. Mild lumbar curve. No acute compression. 3. Moderate central canal stenosis L2-3 due to central disc protrusion in combination with facet art hropathy. 4. Moderate to severe bilateral foraminal narrowing L2-L3 and L4-L5. 5. Mild to moderate bilateral L3-4 bony foraminal narrowing. 6. Spinal canal decompressed at L3-4.
== END 2023-01-16 11:03 | disposition home or self-care (01) ==
LOC: RAD 11:02
PROVIDERS: PCP Family Medicine; Visit Provider Nurse Practitioner Family
DX: M48.061 Spinal stenosis, lumbar region without neurogenic claudication (principal); M51.26 Other intervertebral disc displacement, lumbar region; M47.816 Spondylosis without myelopathy or radiculopathy, lumbar region
CPT/HCPCS: 72148

== ENCOUNTER → 2023-01-23 11:29 | Outpatient (BNVA) | payer MEDICARE, SELFPAY | PROVIDERS: PCP Family Medicine; Visit Provider Physician Assistant | DX: M51.37 Other intervertebral disc degeneration, lumbosacral region (principal); M47.26 Other spondylosis with radiculopathy, lumbar region; M51.26 Other intervertebral disc displacement, lumbar region | CPT/HCPCS: 72110; 99204 ==

== ENCOUNTER 2023-02-01 13:29 | Outpatient (CLI) | payer MEDICARE, SELFPAY ==
[2023-02-01 14:41] LABS: Basophils # 0.1 10^3/uL (0.0-0.1); Basophils % 0.6 %; Eosinophils # 0.4 10^3/uL (0.0-0.8); Eosinophils % 4.4 %; Hematocrit 34.6 % (36-47); Lymphocytes # 2.9 10^3/uL (0.8-4.8); Lymphocytes % 29.7 %; Mean Corpuscular HGB Conc 31.5 g/dL (30-55); Mean Corpuscular Hemoglobin 28.3 pg (27-33); Mean Corpuscular Volume 89.9 fl (85-98); Mean Platelet Volume 11.4 fL (7.4-10.4); Monocytes # 0.8 10^3/uL (0.2-0.9); Monocytes % 8.1 %; Neutrophils # 5.57 10^3/uL (1.8-7.7); Neutrophils % 56.8 %; Nucleated Red Blood Cells % 0 %; Platelet Count 258 10^3/cmm (157-399); Red Blood Count 3.85 10^6/uL (3.85-5.65); Red Cell Distribution Width 14.9 % (12.1-15.1); White Blood Count 9.82 10^3/uL (3.29-11.43)
[2023-02-01 14:49] LABS: Bilirubin Urine Neg (Negative); Blood Urine Neg (Negative); Glucose Urine UA Norm (Normal); Ketones Urine Negative (Negative); Leukocyte Esterase Urine 1+ (Negative); Nitrate Urine Negative (Negative); Protein Urine 2+ (Negative); Urine Appearance Hazy (CLEAR); Urine Color Yellow (Yellow); Urobilinogen Urine 1 mg/dL (Negative); pH Urine 6 (5-7)
[2023-02-01 14:56] LABS: WBC Urine 0-4 /hpf (0-5)
[2023-02-01 14:57] LABS: Add Urine Culture? Yes; Bacteria Urine 3+ /hpf; Mucus Urine 1+ /hpf; Renal Epithelial Cells Urine RARE /hpf
[2023-02-01 15:00] LABS: Alanine Aminotransferase 10 U/L (0-33); Alkaline Phosphatase 132 U/L (35-105); Aspartate Amino Transferase 15 U/L (0-32); Blood Urea Nitrogen 14 mg/dL (8-23); Carbon Dioxide 24 mmol/L (22-29); Chloride 102 mmol/L (98-107); Globulin 3.2 g/dL (1.3-4.6); Glomerular Filtration Rate 72.2 mL/min (90-130); Glucose 127 mg/dL (65-115); Osmolality Calculated 290 mOsm/kg (285-295); Sodium 139 mmol/L (136-145); Total Bilirubin 0.3 mg/dL (0.15-1.2); Total Protein 7.2 g/dL (6.6-8.7)
[2023-02-01 15:03] LABS: Anion Gap 16.6 (5-19); Potassium 3.6 mmol/L (3.5-5.1)
== END 2023-02-01 13:30 | disposition home or self-care (01) ==
PROVIDERS: PCP Family Medicine; Visit Provider Physician Assistant
DX: Z01.818 Encounter for other preprocedural examination (principal); Z79.899 Other long term (current) drug therapy
CPT/HCPCS: 36415; 80053; 81001; 85025; 87077; 87086; 87186

== ENCOUNTER → 2023-02-12 11:49 | Outpatient (BNVA) | payer MEDICARE, SELFPAY | PROVIDERS: PCP Family Medicine; Visit Provider Family Medicine | DX: Z00.00 Encounter for general adult medical examination without abnormal findings (principal) | CPT/HCPCS: 81003 ==

== ENCOUNTER → 2023-02-14 09:03 | Day surgery (SDC) | payer MEDICARE, SELFPAY ==
[2023-02-14 09:08] VITALS: BP 258/102; PULSE 62; RESP 18; TEMP 36.1; O2SAT 100
[2023-02-14 09:37] VITALS: RESP 16
[2023-02-14] MEDS: sodium chloride 0.9% 1,000 ML 30 ML IV (09:37)
[2023-02-14] MEDS: methadone 10 mg Tablet PO (09:37)
[2023-02-14] MEDS: HYDROmorphone 1 mg/mL INJ 1 mL 0.5 MG IVP (10:49)
--- NOTE | 2023-02-14 11:18 | W.PM.OPSUD ---
Surgery/Procedure H&P Update DATE OF PROCEDURE: February 14, 2023 DATE H&P PERFORMED: 02/07/22 H&P UPDATE INFORMATION: I have reviewed H&P completed within last 30 days, I have examined patient prior to procedure and No changes to prior documentation PREOP DIAGNOSIS: DDD Lumbar, Lumbar radiculopathy PLANNED PROCEDURE: Operation Date: 02/14/23 10:30 Proposed Procedures p Spinal Fusion PSF(L2/3,L3/4,L4/5,L5/S1)(Not Applicable) - Yash Draper DO s Lumbar Spine Decompression(L3/4)(Not Applicable) - Yash Draper DO s Open SI Joint Fusion(Not Applicable) - Yash Draper DO s Posterior Lumbar Interbody Fusion PLIF(L5/S1)(Not Applicable) - Yash Draper DO
[2023-02-14] MEDS: albuterol 2.5 mg/3 mL Neb INHALATION (11:42)
[2023-02-14] MEDS: ipratropium 0.5 mg/2.5 mL Neb INHALATION (11:42)
--- NOTE | 2023-02-14 13:27 | ANES.PREANE2 ---
Pre-Anesthetic Assessment Height/Weight: Height 1.59 m Weight 83.461 kg Temp Pulse Resp BP Pulse Ox O2 Del Method 97 F L 62 16 258/102 100 Room Air 02/14/23 09:08 02/14/23 09:08 02/14/23 09:37 02/14/23 09:08 02/14/23 09:08 02/14/23 09:33 Preop Diagnosis: DDD Lumbar, Lumbar radiculopathy Operation Date: 02/14/23 10:30 Proposed Procedures p Spinal Fusion PSF(L2/3,L3/4,L4/5,L5/S1)(Not Applicable) - Yash Draper, s Lumbar Spine Decompression(L3/4)(Not Applicable) - Yash Draper, s Open SI Joint Fusion(Not Applicable) - Yash Draper DO s Posterior Lumbar Interbody Fusion PLIF(L5/S1)(Not Applicable) - Yash Draper, DO Familial anesthetic complications: none Was Beta Chintan taken within 24 hours: Yes Was Clonidine taken within 24 hours: Yes Last intake: Intake Last Liquid Date 02/13/23 Last Liquid Time 22:00 Last Solid Date 02/13/23 Last Solid Time 22:00 Social Tobacco and No alcohol Exam alert, oriented x 3, clear to auscultation bilaterally and regular rate & rhythm Airway Submandibular: within normal limits Cervical ROM: within normal limits Mallampati: Class II Dentition: false Pulmonary Chronic Obstructive Pulmonary Disease CV/HEM Hypertension GI Gastroesophageal Reflux Disease Metabolic Hyperlipidemia and Morbid Obesity Musc/sk Lower Back Pain and Osteoarthritis/DJD Neuropsych Anxiety Anesthetic Plan ASA status: 3 Anesthesia: General Other: BP high 250/105, discussed with patient, mild increase risk for adverse outcome--discussed with patient who wants to improve BP control and reschedule. Medications/Allergies Home Medications Medication Instructions Recorded Confirmed Last Taken Type duloxetine 60 mg capsule,delayed 60 mg PO DAILY 04/16/19 02/13/23 02/13/23 History release (Cymbalta) estradiol 1 mg tablet 1 mg PO DAILY 04/16/19 02/13/23 02/13/23 History lisinopril 20 mg tablet 20 mg PO BID 04/16/19 02/13/23 02/13/23 History clonidine HCl 0.1 mg tablet 0.1 mg PO BID 07/01/21 02/13/2302/13/23 History furosemide 40 mg tablet 40 mg PO DAILY 07/01/21 02/13/23 07/03/21 History gabapentin 300 mg capsule 300 mg PO BID 07/01/21 02/13/23 02/14/23 History metoprolol tartrate 100 mg tablet 100 mg PO BID 07/01/21 02/13/23 02/14/23 History potassium chloride 10 mEq 40 meq PO DAILY 07/01/21 02/13/23 02/13/23 History capsule,extended release clobetasol 0.05 % topical cream 1 applic topical BID 2 weeks #45 07/06/21 02/14/23 01/17/23 Rx grams tramadol 50 mg tablet 50 mg PO TID PRN pain #90 tabs 12/13/22 02/13/23 02/14/23 Rx omeprazole 20 mg capsule,delayed 20 mg PO DAILY 02/07/23 02/13/23 02/14/23 History release simvastatin 20 mg tablet 20 mg PO DAILY 02/07/23 02/13/23 02/13/23 History Allergies Allergy/AdvReac Type Severity Reaction Status Date / Time meloxicam Allergy Intermediate nightmares Verified 02/14/23 09:15 celecoxib [From Celebrex] AdvReac Intermediate headache,ni Verified 02/14/23 09:15 maryellen Current Medications Generic Name Dose Route Start Last Admin Trade Name Freq PRN Reason Stop Dose Admin Hydromorphone HCl 0.5 mg 02/14/23 09:08 02/14/23 10:49 Hydromorphone 1 Mg/Ml Inj 1 Ml IVP 0.5 mg ONCE PRN Administration For preop pain/anxiety Sodium Chloride 1,000 mls @ 30 mls/hr 02/14/23 09:15 02/14/23 09:37 Sodium Chloride 0.9% IV 02/15/23 09:14 30 mls/hr .Q24H GAETANO Administration PFSH Anesthesia Medical History Cauda equina syndrome Immunosuppression Psoriasis, unspecified Psoriatic arthritis Surgical History H/O esophagogastroduodenoscopy (07/04/21) History of hysterectomy History of colonoscopy (07/04/21) 2 years History of back surgery History of revision of total knee arthroplasty 08/20/18 H/O total knee replacement Family History Other CAD (coronary artery disease) Hyperlipidemia Hypertension Stroke Denies family history of Rheumatoid arthritis Diabetes Lupus Chronic kidney disease (CKD) Cancer Social History Smoking and tobacco/nicotine status: current every day tobacco/nicotine user cigarettes Packs smoked per day: 1 Alcohol intake: former Substance/Drug Use: never Adopted: No Caregiver/support person: No Lives independently: No Household members: spouse Marital status: service: No Current occupational status: retired and disabled Sexually active: Yes Do you think of yourself as: Straight/Heterosexual Current gender identity: Female Data Anesthesia Cardiac Studies: No Data to Display
== END ==
LOC: OR 09:04
PROVIDERS: PCP Family Medicine; Visit Provider Orthopaedic Surgery
PROC: (CPT 63005; 2023-02-14 10:30)
PROC: (CPT 27280; 2023-02-14 10:30)
PROC: (CPT 22612; 2023-02-14 10:30)
DX: Z01.818 Encounter for other preprocedural examination (principal)
CPT/HCPCS: J1170; J2371; J2704; J3010; J3490; J7030; J7613; J7644

== ENCOUNTER → 2023-04-06 10:50 | Outpatient (BNVA) | payer MEDICARE, OTHER, SELFPAY | PROVIDERS: PCP Family Medicine; Visit Provider Orthopaedic Surgery | DX: Z01.818 Encounter for other preprocedural examination (principal); M47.26 Other spondylosis with radiculopathy, lumbar region | CPT/HCPCS: 36415; 80053; 81001; 85025; 99214 ==

== ENCOUNTER → 2023-04-13 11:43 | Outpatient (BNVA) | payer MEDICARE, OTHER, SELFPAY | PROVIDERS: PCP Family Medicine; Visit Provider Family Medicine | DX: Z01.818 Encounter for other preprocedural examination (principal); E11.8 Type 2 diabetes mellitus with unspecified complications | CPT/HCPCS: 81003; 83036 ==

== ENCOUNTER → 2023-04-16 11:22 | Outpatient (BNVA) | payer MEDICARE, OTHER, SELFPAY | PROVIDERS: PCP Family Medicine; Visit Provider Family Medicine | DX: Z01.818 Encounter for other preprocedural examination (principal) | CPT/HCPCS: 81003 ==

== ENCOUNTER → 2023-04-17 14:45 | Outpatient (BNVA) | payer MEDICARE, OTHER, SELFPAY | PROVIDERS: PCP Family Medicine; Visit Provider Family Medicine | DX: Z01.818 Encounter for other preprocedural examination (principal); Z79.899 Other long term (current) drug therapy | CPT/HCPCS: 81003; 87077; 87086; 87184 ==

== ENCOUNTER → 2023-05-01 13:39 | Outpatient (BNVA) | payer MEDICARE, OTHER, SELFPAY | PROVIDERS: PCP Family Medicine; Visit Provider Orthopaedic Surgery | DX: M48.062 Spinal stenosis, lumbar region with neurogenic claudication (principal); N20.9 Urinary calculus, unspecified; Z87.442 Personal history of urinary calculi | CPT/HCPCS: 81003; 87086; 99213 ==

== ENCOUNTER 2023-05-16 14:18 | Inpatient (IN) | payer MEDICARE, OTHER, SELFPAY ==
[2023-05-16] VITALS (22 sets, daily range): BP systolic 138–225; BP diastolic 67–106; PULSE 64–84; RESP 16–18; TEMP 36.1–37.1; O2SAT 95–100; BMI 33.6
--- NOTE | 2023-05-16 08:53 | P.ANESASSM_ITS ---
Pre-Anesthetic Assessment Height/Weight: Height 1.57 m Weight 83.461 kg Temp Pulse Resp BP Pulse Ox O2 Del Method 97 F L 64 16 164/71 98 Room Air 05/16/23 08:30 05/16/23 08:30 05/16/23 08:30 05/16/23 08:30 05/16/23 08:30 05/16/23 08:30 Operation Date: 05/16/23 09:40 Proposed Procedures p Spinal Fusion(Not Applicable) - Yash Draper DO s Lumbar Spine Decompression Lumbar Decompression(Not Applicable) - Yash Draper DO s Sacroiliac Joint Fusion/open(Bilateral) - Yash Draper DO Familial anesthetic complications: None Was Beta Chintan taken within 24 hours: N/A Was Clonidine taken within 24 hours: N/A Last intake: Intake Last Liquid Date 05/15/23 Last Liquid Time 20:00 Last Solid Date 05/15/23 Last Solid Time 20:00 Social Tobacco and No alcohol Exam alert, oriented x 3, clear to auscultation bilaterally and regular rate & rhythm Airway Mallampati: Class II CV/HEM Hypertension Metabolic Hyperlipidemia Anesthetic Plan ASA status: 3 Anesthesia: General Risk of > 500 ml blood loss (7ml/kg in children): Yes, adequate IV access and fluids planned Medications/Allergies Home Medications Medication Instructions Recorded Confirmed Last Taken Type duloxetine 60 mg capsule,delayed 60 mg PO DAILY 04/16/19 05/16/23 05/16/23 History release (Cymbalta) estradiol 1 mg tablet 1 mg PO DAILY 04/16/19 05/16/23 05/16/23 History lisinopril 20 mg tablet 20 mg PO BID 04/16/19 05/16/23 05/15/23 History clonidine HCl 0.1 mg tablet 0.1 mg PO BID 07/01/21 05/16/23 05/16/23 History furosemide 40 mg tablet 40 mg PO DAILY 07/01/21 05/16/23 1 Week Ago History ~05/09/23 gabapentin 300 mg capsule 300 mg PO BID 07/01/21 05/16/23 05/16/23 History metoprolol tartrate 100 mg tablet 100 mg PO BID 07/01/21 05/16/23 05/16/23 History potassium chloride 10 mEq 40 meq PO DAILY 07/01/21 05/16/23 3 Days Ago History capsule,extended release ~05/13/23 clobetasol 0.05 % topical cream 1 applic topical BID 2 weeks #45 07/06/21 05/16/23 1 Week Ago Rx grams ~05/09/23 omeprazole 20 mg capsule,delayed 20 mg PO DAILY 02/07/23 05/16/23 05/15/23 History release simvastatin 20 mg tablet 20 mg PO DAILY 02/07/23 05/16/23 05/15/23 History hydrochlorothiazide 25 mg tablet 25 mg PO DAILY 04/13/23 05/16/23 05/16/23 History hydrocodone 5 mg-acetaminophen 325 1 tab PO Q4H PRN pain 5 days #30 05/09/23 05/16/23 05/16/23 Rx mg tablet tabs Allergies Allergy/AdvReac Type Severity Reaction Status Date / Time meloxicam Allergy Intermediate nightmares Verified 05/16/23 08:23 celecoxib [From Celebrex] AdvReac Intermediate headache,ni Verified 05/16/23 08:23 [facility] Anesthesia Medical History Cauda equina syndrome Immunosuppression Psoriasis, unspecified Psoriatic arthritis Surgical History H/O esophagogastroduodenoscopy (07/04/21) History of hysterectomy History of colonoscopy (07/04/21) 2 years History of back surgery History of revision of total knee arthroplasty 08/20/18 H/O total knee replacement Family History Other CAD (coronary artery disease) Hyperlipidemia Hypertension Stroke Denies family history of Rheumatoid arthritis Diabetes Lupus Chronic kidney disease (CKD) Cancer Social History Smoking and tobacco/nicotine status: current every day tobacco/nicotine user cigarettes Packs smoked per day: 1 Alcohol intake: former Substance/Drug Use: never Adopted: No Caregiver/support person: No Lives independently: No Household members: spouse Marital status: service: No Current occupational status: retired and disabled Sexually active: Yes Do you think of yourself as: Straight/Heterosexual Current gender identity: Female Data Anesthesia Cardiac Studies: No Data to Display
[2023-05-16] MEDS: sodium chloride 0.9% 1,000 ML 30 ML IV (09:15)
[2023-05-16] MEDS: fentaNYL 50 mcg/mL INJ 2mL IVP ×2 (09:26→14:30)
--- NOTE | 2023-05-16 09:45 | W.PM.OPSFHP ---
Same Day Surgery H&P Indication for Procedure/HPI DATE OF PROCEDURE: May 16, 2023 CHIEF COMPLAINT/INDICATIONFOR SURGICAL PROCEDURE: Lumbar stenosis with neurogenic claudication PREOP DIAGNOSIS: Lumbar stenosis with neurogenic claudication PLANNED PROCEDURE: Operation Date: 05/16/23 09:40 Proposed Procedures p Spinal Fusion(Not Applicable) - Yash Draper DO s Lumbar Spine Decompression Lumbar Decompression(Not Applicable) - Yash Draper DO s Sacroiliac Joint Fusion/open(Bilateral) - Yash Draper DO Medications/Allergies* Home Medications Medication Instructions Recorded Confirmed Type duloxetine 60 mg capsule,delayed 60 mg PO DAILY 04/16/19 05/16/23 History release (Cymbalta) estradiol 1 mg tablet 1 mg PO DAILY 04/16/19 05/16/23 History lisinopril 20 mg tablet 20 mg PO BID 04/16/19 05/16/23 History clonidine HCl 0.1 mg tablet 0.1 mg PO BID 07/01/21 05/16/23 History furosemide 40 mg tablet 40 mg PO DAILY 07/01/21 05/16/23 History gabapentin 300 mg capsule 300 mg PO BID 07/01/21 05/16/23 History metoprolol tartrate 100 mg tablet 100 mg PO BID 07/01/21 05/16/23 History potassium chloride 10 mEq 40 meq PO DAILY 07/01/21 05/16/23 History capsule,extended release omeprazole 20 mg capsule,delayed 20 mg PO DAILY 02/07/23 05/16/23 History release simvastatin 20 mg tablet 20 mg PO DAILY 02/07/23 05/16/23 History hydrochlorothiazide 25 mg tablet 25 mg PO DAILY 04/13/23 05/16/23 History Allergies/Adverse Reactions Allergy/AdvReac Type Severity Reaction Status Date / Time meloxicam Allergy Intermediate nightmares Verified 05/16/23 08:23 celecoxib [From Celebrex] AdvReac Intermediate headache,ni Verified 05/16/23 08:23 maryellen Current Medications: Generic Name Dose Route Start Last Admin Trade Name Freq PRN Reason Stop Dose Admin Fentanyl 50 mcg 05/16/23 08:14 05/16/23 09:26 Fentanyl 50 Mcg/Ml Inj 2ml IVP 50 mcg Q10M PRN Administration Preop Pain Sodium Chloride 1,000 mls @ 30 mls/hr 05/16/23 08:15 05/16/23 09:15 Sodium Chloride 0.9% IV 05/17/23 08:14 30 mls/hr .Q24H GAETANO Administration Pertinent History/Comorbid Conditions* Medical History (Updated 05/01/23 @ 14:32 by Yash Draper DO) Cauda equina syndrome Immunosuppression Psoriasis, unspecified Psoriatic arthritis Surgical History (Updated 07/04/21 @ 10:52 by Sandor Hope MD) H/O esophagogastroduodenoscopy (07/04/21) History of hysterectomy History of colonoscopy (07/04/21) 2 years History of back surgery History of revision of total knee arthroplasty 08/20/18 H/O total knee replacement Family History (Updated 07/01/21 @ 10:03 by Ana Hayes LPN) CAD (coronary artery disease) Hyperlipidemia Hypertension Stroke Denies family history of Rheumatoid arthritis Diabetes Lupus Chronic kidney disease (CKD) Cancer Social History Smoking and tobacco/nicotine status: current every day tobacco/nicotine user cigarettes Packs smoked per day: 1 Alcohol intake: former Substance/Drug Use: never Adopted: No Caregiver/support person: No Lives independently: No Household members: spouse Marital status: service: No Current occupational status: retired and disabled Sexually active: Yes Do you think of yourself as: Straight/Heterosexual Current gender identity: Female Pertinent Exam Findings oriented x 3 Recommendations Surgery/Procedure today Coding Level of Care Code Acute Code for Chg Fwd
[2023-05-16] MEDS: ceFAZolin 2,000 MG in sodium chloride 0.9% (plus) 50 ML 100 MG IV ×2 (10:37→18:08)
[2023-05-16] MEDS: lidocaine-epi 1% 20 mL INJ INJECTION (11:28)
[2023-05-16] MEDS: heparin, porcine 1,000 unit/mL INJ 10 mL 10000 UNIT XX (11:28)
[2023-05-16] MEDS: vancomycin 1,000 MG SDV 1000 MG XX (11:29)
--- NOTE | 2023-05-16 14:07 | P.OP_ITS ---
Operative Report Date of procedure: May 16, 2023 Pre-op diagnosis: Lumbar stenosis with neurogenic claudication Post-op diagnosis: same Procedure done: 1. Posterior fusion L3-pelvis 2.? Instrumentation L3-S1 3.? Lumbopelvic instrumentation 4. open right Sacral iliac fusion 5. open left sacral iliac fusion 6. L3/4 laminectomy with partial facetectomy 7. use of computer navigation / stereotactic spine 8. use of autograft from same incision 9. allograft 10. Bone marrow aspirate from right iliac crest Surgeon: Yash Draper DO Estimated blood loss (mL): 250 Procedure: 1. Posterior fusion L3-pelvis 2.? Instrumentation L3-S1 3.? Lumbopelvic instrumentation 4. open right Sacral iliac fusion 5. open left sacral iliac fusion 6. L3/4 laminectomy with partial facetectomy 7. use of computer navigation / stereotactic spine 8. use of autograft from same incision 9. allograft 10. Bone marrow aspirate from right iliac crest Patient is brought to the operative suite.? After undergoing anesthesia, the patient had neuro monitoring attached.? Patient was then placed in the prone position on the [place] table.? All areas of impingement were well-padded.? Patient was then prepped and draped in the normal sterile fashion.? Skin incision was then made over the L3 to the sacrum.? Subperiosteal dissection was made out to the transverse processes of L3 bilaterally,?L4 bilaterally L5 bilaterally and sacral ala bilaterally.? The [employer] bone marrow aspirate kit was used to aspirate bone marrow aspirate.? This was done by using the sharp probe to open up the bone.? Aspiration was performed and then the blunt probe was then used to dissect down to through the bone tunnel.? An aspirating well drawn back a millimeter approximately 20 cc of bone marrow aspirate was used.? Admixed with the allograft and autograft bone that will be used. Next attension was brought to placing the fiducial for the computer navigation.? 2 pins were placed into the right iliac crest.? The fiducial was attached.? The C-arm was brought in and information from the C arm was then linked to the computer used for placing the screws.? Next attention was brought to placing the pedicle screws.? This was done by using the gearshift probe linked to computer navigation.? The probe was used to identify the pedicle.? Then the pedicle feeler was used followed by placement of screw length to the computer navigation.? This was done at?L3 bilaterally L4 bilaterally, L5 bilaterally and S1 bilaterally. Next attension was brought to placing the iliac screws.? This was done using the sacral ala iliac technique.? The gearshift probe linked to computer navigation was then placed through the sacral ala into the sacroiliac joint into the iliac crest.? Next the pedicle feeler was used followed by the computer navigated tap.? And then the screw was passed a 80 mm screw was placed on the right side and a 80 mm screw was placed on the left side.? Both the screws were 9.5 mm in diameter. Next attension was brought to performing the open and sacral iliac fusion.? This was done by again using the gearshift probe linked to computer navigation.? Followed by pedicle feeler followed by placing a wire and then the drill drilled over the wire and then bone graft was packed into the sacroiliac joint and into the drill hole.? And the sacroiliac screw was then placed.? This technique was done on both the right and left side. Next attention was brought to performing the laminectomy of L3.? This was done using the high-speed bur Kerrisons and curettes.? Once the lamina was removed and then attention was brought to performing a partial facetectomy on the contralateral side.? This was done again using the high-speed bur curettes and Kerrisons.? The ligamentum flavum was taken down bilaterally from L3 to L4.? Attention was then brought to the facet on the ipsilateral side.? The facet was taken down.? The L4 nerve was decompressed as it passed around the L4 pedicle.? The L3 nerve was identified as it traversed through the L3/4 foramen.? The L4 nerve was traced around the L4 pedicles bilateral.? .? There was found to be in good repair. Attention was then brought to attaching the rods to the screws placed in the L3 bilaterally, L4 bilaterally, L5 bilaterally and S1 bilaterally.? This was then attached to the sacroiliac screw providing the lumbopelvic fixation.? Caps were torqued into position. Locking the construct in place. Wound was copiously irrigated and then attention was brought to decorticating the facets and transverse processes laterally.? Bone that was taken down from the lamina was used along with osteoamp fibers and sponges were packed into the lateral gutters along the facet joints.? This was done bilaterally. Wound was then closed in a layered fashion starting with the thoracolumbar fascia.? 0-vicryl was used the sub cutaneous tissue was closed with 2-0 vicryl and skin with 4-0 monocryl.? Glue was then used to seal the skin and a steril dressing was applied.? Patient was then placed in the supine position. The endotracheal tube was removed and patient was transferred to the PACU in stable condition.
[2023-05-16] MEDS: hyDRALAzine 20 mg/mL INJ 1 mL 5 MG IVP (14:35)
[2023-05-16] MEDS: HYDROmorphone 1 mg/mL INJ 1 mL 0.5 MG IVP (14:46)
[2023-05-16] MEDS: albuterol 2.5 mg/3 mL Neb INHALATION (14:55)
[2023-05-16] MEDS: labetalol 5 mg/mL SDV 20mL 100 MG (15:02)
--- NOTE | 2023-05-16 15:06 | XR_ITS ---
WS: [id number] Lumbar spine, C-arm fluoroscopy views, 05/16/2023 Clinical Data: MARTITA PICS Comparison: Lumbar spine, 01/23/2023 Findings: Dr. Draper performed a posterior lumbosacral fusion. Impression: Posterior lumbosacral fusion.
--- NOTE | 2023-05-16 15:20 | ANE.PACU2 ---
Inpatient post-anesthesia follow up: Airway intact: Yes Vital signs: Temperature 97.9 F Pulse Rate 67 Respiratory Rate 18 Blood Pressure 116/65 Pulse Oximetry 96 Oxygen Delivery Me thod Room Air Oxygen Flow Rate 6 Fraction of Inspir ed Oxygen Hydration adequate: Yes Nausea and vomiting: No Pain level: 1 Mental status: Baseline
[2023-05-16] MEDS: ketorolac 30 mg/mL INJ IVP (15:39)
[2023-05-16] MEDS: lactated ringers 1,000 ML 90 ML IV (15:40)
[2023-05-16] MEDS: morphine 4 mg/mL SDV 1 mL 2 MG IVP ×3 (16:21→21:35)
[2023-05-16] MEDS: gabapentin 300 mg Capsule PO (18:07)
[2023-05-16] MEDS: metoprolol tartrate 50 mg Tablet 100 MG PO (18:07)
[2023-05-16] MEDS: HYDROcodone-acetaminophen 10-325 mg Tablet PO ×2 (18:07→23:23)
[2023-05-16] MEDS: docusate sodium 100 mg Capsule PO (18:07)
[2023-05-16] MEDS: cloNIDine 0.1 mg Tablet 0.100000000000000006 MG PO (18:07)
[2023-05-16] MEDS: lisinopril 20 mg Tablet PO (18:07)
[2023-05-17 00:56] VITALS: RESP 18
[2023-05-17] MEDS: morphine 4 mg/mL SDV 1 mL 2 MG IVP ×2 (00:56→05:36)
[2023-05-17] MEDS: ceFAZolin 2,000 MG in sodium chloride 0.9% (plus) 50 ML 100 MG IV ×2 (01:47→10:53)
[2023-05-17] MEDS: lactated ringers 1,000 ML 90 ML IV (02:37)
[2023-05-17] MEDS: HYDROcodone-acetaminophen 10-325 mg Tablet PO ×3 (03:43→12:33)
[2023-05-17 04:07] VITALS: BP 162/71; PULSE 82; RESP 18; TEMP 36.6; O2SAT 94
[2023-05-17 05:36] VITALS: RESP 18
[2023-05-17 07:38] VITALS: BP 149/66; PULSE 73; RESP 18; O2SAT 98
[2023-05-17] MEDS: atorvastatin 40 mg Tablet 20 MG PO (08:22)
[2023-05-17] MEDS: lisinopril 20 mg Tablet PO (08:23)
[2023-05-17] MEDS: cloNIDine 0.1 mg Tablet 0.100000000000000006 MG PO (08:23)
[2023-05-17] MEDS: gabapentin 300 mg Capsule PO (08:23)
[2023-05-17] MEDS: hydroCHLOROthiazide 25 mg Tablet PO (08:23)
[2023-05-17] MEDS: duloxetine 60 mg Capsule PO (08:26)
[2023-05-17] MEDS: pantoprazole DR 40 mg Tablet PO (08:26)
[2023-05-17] MEDS: docusate sodium 100 mg Capsule PO (08:26)
[2023-05-17] MEDS: metoprolol tartrate 50 mg Tablet 100 MG PO (08:26)
[2023-05-17] MEDS: potassium chloride ER 20 mEq Tablet 40 MEQ PO (08:26)
[2023-05-17] MEDS: estradiol 1 mg Tablet PO (09:54)
[2023-05-17 10:04] VITALS: BP 149/66; PULSE 73; RESP 18; O2SAT 98
--- NOTE | 2023-05-17 10:11 | P.DS_ITS ---
Discharge Providers Date of Admission: 05/16/23 14:18 Date of Discharge: May 17, 2023 Attending Provider at Admission: Yash Draper DO Attending Provider at Discharge: Yash Draper DO Primary Care Provider: Andra Marshall MD Reason for Visit Reason for Visit: M47.26 Physical Exam Narrative: Ambulate with therapy doing well pain controlled Urinary Catheter Management: Zelaya: Cath Placed During This Visit: yes Reason for Continuing Indwelling Catheter: Other Urinary Catheter Date of Insertion: 05/16/23 Urinary Catheter Time of Insertion: 10:45 Discharge Data Studies Completed and Pending Completed Studies During Hospitalization Category Date Time Status XR lumbar spine 2-3V* [id number] Routine Exams 05/16/23 15:06 Completed Laboratory Results Blood Type A Positive 05/16/23 09:40 Rho(D) Type Rh positive 05/16/23 09:40 Antibody Screen Negative 05/16/23 09:40 Vitals Last Vital Signs Temp 97.9 F 05/17/23 04:07 Pulse 73 05/17/23 10:04 Resp 18 05/17/23 10:04 BP 149/66 05/17/23 10:04 Pulse Ox 98 05/17/23 10:04 O2 Del Method Room Air 05/17/23 07:38 O2 Flow Rate 6 05/16/23 14:20 Discharge Plan Discharge Patient Disposition: Home Condition: Stable Prescriptions: New hydrocodone-acetaminophen 10-325 mg tablet 1 tab PO Q4H PRN (Reason: pain) 7 Days Qty: 40 0RF Continued lisinopril 20 mg tablet 20 mg PO BID duloxetine [Cymbalta] 60 mg capsule,delayed release(DR/EC) 60 mg PO DAILY estradiol 1 mg tablet 1 mg PO DAILY potassium chloride 10 mEq capsule, extended release 40 meq PO DAILY clonidine HCl 0.1 mg tablet 0.1 mg PO BID Rx Instructions: 0.1 mg twice a day; hydrochlorothiazide 25 mg tablet 25 mg PO DAILY gabapentin 300 mg capsule 300 mg PO BID furosemide 40 mg tablet 40 mg PO DAILY metoprolol tartrate 100 mg tablet 100 mg PO BID clobetasol 0.05 % cream 1 applic topical BID 14 Days Qty: 45 0RF simvastatin 20 mg tablet 20 mg PO DAILY omeprazole 20 mg capsule,delayed release(DR/EC) 20 mg PO DAILY Discontinued hydrocodone-acetaminophen 5-325 mg tablet 1 tab PO Q4H PRN (Reason: pain) 5 Days Qty: 30 0RF Discharge Orders: Discharge Order (Routine); Ordered 05/17/23 Ordered By: Yash Draper Referrals: Yash Draper DO [Physician] - 05/24/23 3:45 pm Discharge Diet: Advance as tolerated Discharge Activity: Limit activity as instructed Patient Instructions: Opioid Safety Activity Restrictions/Additional Instructions: Thank you for [facility] for your care! The following is a list of instructions, from your provider, to follow upon your discharge to ensure you have the optimal recovery from your recent injury orsurgery. Follow-up care is a herron part of your treatment and safety. Be sure to make and go to all appointments, and call your doctor if you are having problems. If you do not already have a follow-up appointment made, call Dr. Draper office in the next 1-3 days to make follow up appointment for 1 weeks at [phone]. It is also a good idea to know your test results and keep a list of the medicines you take. Medications will be prescribed for you at your provider's discretion. These medications are to be used as instructed; if they are taken more often that prescribed they will not be refilled early and in most cases will not be refilled at all. > When a refill is needed,you should contact kathie merchant 2-3 business days before your prescription runs out. Medications will NOT be refilled by radiosonde specialist providers after hours! > Many pain medications contain Tylenol (Acetaminophen). Do not consume more than 4,000 mg of Tylenol per day in total with any combination ofmedications. > Pain medications can cause constipation. Please use an over the counter stool softener as directed, while taking pain medications. Consulty our local pharmacist with questions or recommendations on stool softeners. If constipation persists, contact our office or your primary care provider. > While under our care,you are not to receive pain medications or other controlled substances from any other provider unless our office is notified and approves. Any attempts to do so will result in refusal to prescribe any further pain medications and possible dismissal from our practice. ? Your wound and/or dressing should remain clean and dry for 7 days after surgery. On postoperative day 7. Will change dressing in clinic in 7 days. It is okay to shower and get the incision wet. Pad dry afterwards. No further dressing should be required from that point on. Do not put any creams or ointments on theincision > It is normal for there to be a small amount of discharge (bloody or blood tinged) present from a surgical wound for the first 1-3days. > The wound should be examined twice a day for signs of infection. Mild redness or bruising is to be expected but indications that an infection maybe starting would include; An increase in redness, swelling, or discharge, a foul odor present around the incision, and/or a fever greater than 101 ?F ? Showering is permitted, however we ask that you do not take a bath, sit in a whirlpool / Jacuzzi, or go swimming for 1 month. For only the first 2 days after surgery, lt wilt be necessary for you to cover your wound/dressing with plastic and tape to keep it dry. ? Walking is essential for the healing process after surgery. We would like you to slowly advance your walking. This should be done on relatively flat clear ground (inside or out) or can be done on a treadmill. Remember this goal does not have to happen all at once, slowly increase your distance and duration. This can be broken into more more than one walk per day as tolerated. Patients who walk as directed after surgery rarely require Physical Therapy. In the unlikely event this issue arises your provider will direct hospital staff to make the appropriate arrangements. ? No lifting over 5 pounds {a gallon of milk) or bending/twisting until further notice. Each of these activities places an unnecessary amount of stress onto the body and can impede the delicate healing process. > Instead of bending at the waist, keep your back straight and bend at the knees. > Instead of twisting your torso, keep your back straight and turn your entire body with your feet. ? You may sleep in any position which makes you comfortable. Many patients find comfort sleeping in a reclining chair. It is not abnormal to have difficulty sleeping for the first several weeks following your surgery. We recommend trying Benadry! or Tylenol PM as directed to help with your sleeping difficulties. Both medications are over the counter and available withoutprescri ption. ? NO SMOKING!!! Smoking dramatically increases the probability of developing postoperative wound infections. ? Common complaints after lumbar and/or thoracic spine surgery include, but are not limited to: numbness and/or tingling in the legs, pain around the incision and surrounding tissues, muscle spasms, or stiffness of the middle to low back. Contact our office if these symptoms persist or if an acute change occurs. ? No driving for the first 3-5days, and not while taking narcotics [] until seen at your follow-up appointment and cleared. There are no restrictions for riding on short trips, however if you take a longer trip, arrangements should be made to make regular stops to get out of the vehicle and stretch . ? Swelling is an unfortunate event that will take place with any surgery and is the primary source of your postoperative discomfort. While walking and regular approved activities helps control inflammation, there are additional steps you can take to minimizeswelling. > Place ice over the surgical site and surrounding tissue for twenty minutes, followed by applying a low/medium heat (heating pad) for an additional twenty minutes every 1-2 hours as needed for painrelief. > You may use of over the counter anti-inflammatory medications (Ibuprofen, Motrin, Aleve, Advil, etc) as directed on the package label. These types of medicines wm significantly reduce the amount of discomfort you experience after surgery from swelling. It should be noted that if you have and allergy to any of these medications, or a history of ulcers or kidney disease you should consult you primary care provider prior to starting these medications. Discharge Attestations Time Spent in Discharge Care*: less than 30 min Quality Metrics Clinical Quality Measures [ No reported AMI, CVA or VTE this stay] Coding Level of Care Code Acute Code for Chg Andrei
[2023-05-17 11:28] VITALS: BP 116/65; PULSE 67; RESP 18; O2SAT 96
== END 2023-05-17 14:10 | disposition home or self-care (01) | DRG 455 ==
LOC: MEDSURG 14:34
PROVIDERS: Admitting Provider Orthopaedic Surgery; PCP Family Medicine; Visit Provider Orthopaedic Surgery
PROC: 0SG107J Fusion of 2 or more Lumbar Vertebral Joints with Autologous Tissue Substitute, Posterior Approach, Anterior Column, Open Approach (ICD-10-PCS; principal; 2023-05-16 09:10)
PROC: 0SG107J Fusion of 2 or more Lumbar Vertebral Joints with Autologous Tissue Substitute, Posterior Approach, Anterior Column, Open Approach (ICD-10-PCS; CPT 63005; 2023-05-16 09:10)
PROC: 0SG107J Fusion of 2 or more Lumbar Vertebral Joints with Autologous Tissue Substitute, Posterior Approach, Anterior Column, Open Approach (ICD-10-PCS; CPT 27280; 2023-05-16 09:10)
DX: M48.062 Spinal stenosis, lumbar region with neurogenic claudication (principal); F17.210 Nicotine dependence, cigarettes, uncomplicated; Z87.440 Personal history of urinary (tract) infections; L40.9 Psoriasis, unspecified; L40.50 Arthropathic psoriasis, unspecified; I10 Essential (primary) hypertension; E78.5 Hyperlipidemia, unspecified; Z79.890 Hormone replacement therapy
CPT/HCPCS: 36415; 51702; 72100; 76000; 86850; 86900; 97116; 97161; 97530; C1713; J0131; J0360; J0690; J1100; J1170; J1644; J1885; J2270; J2371; J2405; J2704; J3010; J3370; J3490; J7030; J7120; J7613; J8499; P9045

== ENCOUNTER → 2023-05-24 15:47 | Outpatient (BNVA) | payer MEDICARE, OTHER, SELFPAY | PROVIDERS: PCP Family Medicine; Visit Provider Orthopaedic Surgery | DX: Z09 Encounter for follow-up examination after completed treatment for conditions other than malignant neoplasm (principal) | CPT/HCPCS: 99024 ==

== ENCOUNTER → 2023-05-31 10:39 | Outpatient (BNVA) | payer MEDICARE, OTHER, SELFPAY | PROVIDERS: PCP Family Medicine; Visit Provider Orthopaedic Surgery | DX: Z98.1 Arthrodesis status (principal) | CPT/HCPCS: 99024 ==

== ENCOUNTER → 2023-06-28 10:52 | Outpatient (BNVA) | payer MEDICARE, OTHER, SELFPAY | PROVIDERS: PCP Family Medicine; Visit Provider Orthopaedic Surgery | DX: Z98.1 Arthrodesis status (principal) | CPT/HCPCS: 72100; 99024 ==

== ENCOUNTER → 2023-08-09 10:27 | Outpatient (BNVA) | payer MEDICARE, OTHER, SELFPAY | PROVIDERS: PCP Family Medicine; Visit Provider Orthopaedic Surgery | DX: Z98.1 Arthrodesis status (principal); M48.062 Spinal stenosis, lumbar region with neurogenic claudication | CPT/HCPCS: 72100; 99024 ==

== ENCOUNTER → 2023-11-06 10:30 | Outpatient (BNVA) | payer MEDICARE, OTHER, SELFPAY | PROVIDERS: PCP Family Medicine; Visit Provider Orthopaedic Surgery | DX: Z98.1 Arthrodesis status (principal); M25.551 Pain in right hip | CPT/HCPCS: 72100; 73502; 99213 ==

== ENCOUNTER 2023-12-27 12:17 | Outpatient (CLI) | payer MEDICARE, OTHER, SELFPAY ==
--- NOTE | 2023-12-27 12:19 | MM_ITS ---
WS: [id number] BILATERAL SCREENING DIGITAL TOMOSYNTHESIS MAMMOGRAM WITH CAD HISTORY: SCREENING COMPARISON: 10/12/2022, 09/06/2022, 07/18/2021 Bilateral CC and MLO views with tomosynthesis and synthetic mammography submitted. Computer aided det ection analyzed. Breast composition: There are scattered areas of fibroglandular density. No suspicious masses, microc alcifications or architectural distortion. MM/MM scr BI tomosynthesis [id number] IMPRESSION: BI-RADS: 2 - Benign. FOLLOW UP: 1 Year Follow-up
== END 2023-12-27 12:18 | disposition home or self-care (01) ==
LOC: RAD 12:18
PROVIDERS: PCP Family Medicine; Visit Provider Family Medicine
DX: Z12.31 Encounter for screening mammogram for malignant neoplasm of breast (principal); R92.323 Mammographic fibroglandular density, bilateral breasts
CPT/HCPCS: 77063; 77067

== ENCOUNTER → 2024-03-18 13:18 | Outpatient (BNVA) | payer MEDICARE, SELFPAY | PROVIDERS: PCP Family Medicine; Visit Provider Orthopaedic Surgery | DX: Z98.1 Arthrodesis status (principal); M25.559 Pain in unspecified hip | CPT/HCPCS: 72100; 73522; 99213 ==

== ENCOUNTER → 2024-04-10 08:58 | Outpatient (BNVA) | payer MEDICARE, SELFPAY | PROVIDERS: PCP Family Medicine; Visit Provider Orthopaedic Surgery | DX: Z98.1 Arthrodesis status (principal) | CPT/HCPCS: 36415; 72100; 80053; 81001; 85025; 99214 ==

== ENCOUNTER 2024-04-25 09:25 | Day surgery (SDC) | payer MEDICARE, SELFPAY ==
[2024-04-25] VITALS (21 sets, daily range): BP systolic 144–223; BP diastolic 74–124; PULSE 62–76; RESP 10–112; TEMP 36.1–36.3; O2SAT 94–100; BMI 33.3
--- NOTE | 2024-04-25 10:20 | ANES.PREANE2 ---
Pre-Anesthetic Assessment Height/Weight: Height 5 ft 2 in Weight 182 lb O2 Del Method Room Air 04/25/24 09:59 Preop Diagnosis: Painful orthopedic hardware Operation Date: 04/25/24 11:10 Proposed Procedures p Hardware Removal Back(Not Applicable) - Yash Draper, DO Was Beta Chintan taken within 24 hours: Yes Was Clonidine taken within 24 hours: Yes Last intake: Intake Last Liquid Date 04/24/24 Last Liquid Time 19:30 Last Solid Date 04/24/24 Last Solid Time 19:30 Exam alert, clear to auscultation bilaterally and regular rate & rhythm Airway Submandibular: within normal limits Cervical ROM: within normal limits Mallampati: Class II Dentition: false Comments: Comments: No teeth on bottom, false uppers Anesthetic Plan ASA status: 3 Anesthesia: General Other: No prior issues with anesthesia. Prior grade 2 view with MAC 3 blade last year NPO since yesterday History of hypertension on lisinopril, clonidine, HCTZ and metoprolol GERD on omeprazole History of psoriatic arthritis Labs 04/10/2024 reviewed, K+ 3.1. Repeat BMP pending Plan for GETA plan for GETA Medications/Allergies Home Medications ?Medication ?Instructions ?Recorded ?Confirmed ?Last Taken ?Type duloxetine 60 mg capsule,delayed 60 mg PO DAILY 04/16/19 04/25/24 04/24/24 History release (Cymbalta) estradiol 1 mg tablet 1 mg PO DAILY 04/16/19 04/25/24 04/24/24 History lisinopril 20 mg tablet 20 mg PO BID 04/16/19 04/25/24 04/24/24 History clonidine HCl 0.1 mg tablet 0.1 mg PO BID 07/01/21 04/25/24 04/24/24 History furosemide 40 mg tablet 40 mg PO DAILY 07/01/21 04/25/24 04/24/24 History gabapentin 300 mg capsule 300 mg PO BID 07/01/21 04/25/24 04/24/24 History metoprolol tartrate 100 mg tablet 100 mg PO BID 07/01/21 04/25/24 04/25/24 History potassium chloride 10 mEq 40 meq PO DAILY 07/01/21 04/25/24 04/24/24 History capsule,extended release clobetasol 0.05 % topical cream 1 applic topical BID 2 weeks #45 07/06/21 04/25/24 1 Week Ago Rx grams ~05/09/23 omeprazole 20 mg capsule,delayed 20 mg PO DAILY 02/07/23 04/25/24 04/24/24 History release simvastatin 20 mg tablet 20 mg PO DAILY 02/07/23 04/25/24 04/24/24 History hydrochlorothiazide 25 mg tablet 25 mg PO DAILY 04/13/23 04/25/24 04/24/24 History metformin 500 mg tablet 500 mg PO DAILY 04/10/24 04/25/24 04/24/24 History tramadol 50 mg tablet 50 mg PO TID pain 7 days #21 tabs 04/17/24 04/25/24 04/24/24 Rx Allergies Allergy/AdvReac Type Severity Reaction Status Date / Time meloxicam Allergy Intermediate nightmares Verified 04/24/24 15:53 celecoxib (From Celebrex) AdvReac Intermediate headache,ni Verified 04/24/24 15:53 [facility] [place] Anesthesia Medical History Cauda equina syndrome Immunosuppression Psoriasis, unspecified Psoriatic arthritis Surgical History H/O esophagogastroduodenoscopy (07/04/21) History of hysterectomy History of colonoscopy (07/04/21) 2 years History of back surgery History of revision of total knee arthroplasty 08/20/18 H/O total knee replacement Family History Other CAD (coronary artery disease) Hyperlipidemia Hypertension Stroke Denies family history of Rheumatoid arthritis Diabetes Lupus Chronic kidney disease (CKD) Cancer Social History Smoking and tobacco/nicotine status: never used tobacco/nicotine Alcohol intake: former Substance/Drug Use: never Adopted: No Caregiver/support person: No Lives independently: No Household members: spouse Marital status: service: No Current occupational status: retired and disabled Sexually active: Yes Do you think of yourself as: Straight/Heterosexual Current gender identity: Female Data Anesthesia Cardiac Studies: No Data to Display
[2024-04-25] MEDS: sodium chloride 0.9% 1,000 ML 30 ML IV (10:28)
[2024-04-25 10:33] LABS: Glucose Point of Care 158 mg/dL (70-110)
[2024-04-25 10:50] LABS: Anion Gap 14.6 (5-19); Blood Urea Nitrogen 17 mg/dL (8-23); Calcium 9.3 mg/dL (8.5-10.5); Carbon Dioxide 25 mmol/L (22-29); Chloride 98 mmol/L (98-107); Creatinine Clr Calc Pharmacy 69.8169; Glucose 168 mg/dL (65-115); Osmolality Calculated 283 mOsm/kg (285-295); Potassium 3.6 mmol/L (3.5-5.1); Sodium 134 mmol/L (136-145)
--- NOTE | 2024-04-25 11:09 | W.PM.OPSUD ---
Surgery/Procedure H&P Update DATE OF PROCEDURE: April 25, 2024 DATE H&P PERFORMED: 04/10/24 H&P UPDATE INFORMATION: I have reviewed H&P completed within last 30 days, I have examined patient prior to procedure and No changes to prior documentation PREOP DIAGNOSIS: Painful orthopedic hardware PLANNED PROCEDURE: Operation Date: 04/25/24 11:10 Proposed Procedures p Hardware Removal Back(Not Applicable) - Yash Draper DO
[2024-04-25] MEDS: ceFAZolin 2,000 mg SDV 2000 MG IVP (11:19)
[2024-04-25] MEDS: lidocaine-epi 1% PF 1:200,000 30 mL SDV INJECTION (11:48)
[2024-04-25] MEDS: vancomycin 1,000 MG SDV 1000 MG XX (12:04)
--- NOTE | 2024-04-25 12:28 | P.OP_ITS ---
Operative Report Date of procedure: April 25, 2024 Pre-op diagnosis: Painful hardware lumbar spine Post-op diagnosis: same Post-op findings: Removal of deep hardware from lumbar spine (iliac screws connected to long construct) Surgeon: Yash Draper DO Estimated blood loss (mL): 25 Procedure: Removal of deep hardware from lumbar spine (iliac screws connected to long construct) Patient brought the op suite after an Gonasi was placed in the prone position. All his impingement well-padded. Patient's prepped draped in sterile fashion. Incision is made over the previous skin incision. The thoracolumbar fascia was identified. The tissue was undermined over and then thoracolumbar fascia split over the screws and a Wiltsie type approach. This was done on the right side first. The screw head was identified screw Was removed. Santi was then identified proximally distally to the screw. The santi was then cut proximal to the screw. And the santi was removed. The screw was then Was removed followed by the santi and then the screw was removed. This process was repeated on the left side. Again the thoracolumbar fascia was identified undermined above it and then the fascia was split in a Wiltsie type approach the screw head was identified screw Was removed. The santi was ident ified santi was cut using metal cutting bur the santi was removed. And then the screw was backed out of the iliac crest. AP fluoroscopy ensured that the hardware was all removed. Wounds were irrigated and thoracolumbar fascia was closed with 0 Vicryl and skin incision layered fashion with 0 Vicryl 2-0 Vicryl and Monocryl suture. Sterile dressings were applied patient is transferred to the PACU in stable condition.
--- NOTE | 2024-04-25 12:32 | ANE.PACU2 ---
Inpatient post-anesthesia follow up: Airway intact: Yes Vital signs: Temperature 97.0 F Pulse Rate 67 Respiratory Rate 16 Blood Pressure 205/89 Pulse Oximetry 100 Oxygen Delivery Me thod Room Air Oxygen Flow Rate Fraction of Inspir ed Oxygen Hydration adequate: Yes Nausea and vomiting: No Pain level: 1 Mental status: Baseline
--- NOTE | 2024-04-25 12:37 | XR_ITS ---
WS: [id number] Lumbar spine, C-arm fluoroscopy views, 04/25/2024 Clinical Data: or spine , hardware removal Comparison: Lumbar spine, 04/10/2024 Findings: Dr. Draper removed SI joint fixating screws. XR/XR lumbar spine 1V [id number] Impression: Removal of SI joint screws.
[2024-04-25] MEDS: morphine 4 mg/mL SDV 1 mL 2 MG IVP (12:40)
[2024-04-25] MEDS: HYDROmorphone 1 mg/mL INJ 1 mL 0.5 MG IVP ×2 (12:49→13:02)
[2024-04-25] MEDS: hyDRALAzine 20 mg/mL INJ 1 mL 10 MG IVP (13:12)
[2024-04-25] MEDS: fentaNYL 50 mcg/mL INJ 2mL IVP (13:25)
[2024-04-25] MEDS: HYDROcodone-acetaminophen 5-325 mg Tablet 2 TAB PO (14:06)
[2024-04-25] MEDS: labetalol 5 mg/mL SDV 20mL 10 MG IVP (14:16)
== END 2024-04-25 14:45 | disposition home or self-care (01) ==
PROVIDERS: Student in an Organized Health Care Education/Training Program; PCP Family Medicine; Visit Provider Orthopaedic Surgery
PROC: (CPT 20680; principal; 2024-04-25 11:00)
DX: T84.84XA Pain due to internal orthopedic prosthetic devices, implants and grafts, initial encounter (principal); K21.9 Gastro-esophageal reflux disease without esophagitis; I10 Essential (primary) hypertension; L40.50 Arthropathic psoriasis, unspecified; Z79.899 Other long term (current) drug therapy; Z88.8 Allergy status to other drugs, medicaments and biological substances; Z98.1 Arthrodesis status
CPT/HCPCS: 20680; 36415; 36416; 72020; 76000; 80048; 82962; J0360; J0690; J1100; J1171; J2270; J2405; J2704; J3010; J3370; J3490; J7030

== ENCOUNTER → 2024-05-06 10:40 | Outpatient (BNVA) | payer MEDICARE, SELFPAY | PROVIDERS: PCP Family Medicine; Visit Provider Orthopaedic Surgery | DX: Z98.1 Arthrodesis status (principal) | CPT/HCPCS: 99024 ==

== ENCOUNTER → 2024-06-03 08:30 | Outpatient (BNVA) | payer MEDICARE, SELFPAY | PROVIDERS: PCP Family Medicine; Visit Provider Orthopaedic Surgery | DX: Z98.890 Other specified postprocedural states (principal) | CPT/HCPCS: 72100; 99024 ==

== ENCOUNTER → 2024-07-15 10:44 | Outpatient (BNVA) | payer MEDICARE, SELFPAY | PROVIDERS: PCP Family Medicine; Visit Provider Orthopaedic Surgery | DX: Z98.1 Arthrodesis status (principal) | CPT/HCPCS: 72100; 99024 ==

== ENCOUNTER 2024-07-18 11:00 | Outpatient (CLI) | payer MEDICARE, SELFPAY ==
--- NOTE | 2024-07-18 11:08 | CT_ITS ---
WS: [id number] LDCT LUNG CANCER SCREENING TECHNIQUE: Noncontrast CT of the chest with coronal and sagittal reformatted images. CLINICAL INFORMATION: NICOTINE DEPENDENCE, CIGARETTES COMPARISON: None. DLP: 69.27 mGy.cm DIvol: Mean CTDIvol: 1.40 (mGy) All CT scans at [facility] use at least one of these dose optimization techniques: automated exposure control; mA and/or kV adjustment per patient size (includes targeted exams where dose is matched to clinical indication); or iterative reconstruction. FINDINGS: No suspicious pulmonary parenchymal abnormalities. A few tiny micronodules in the RIGHT upper lobe. Normal caliber aortic arch. Aortic arch calcification. Coronary calcification. No mediastinal or hilar lymphadenopathy. No axillary lymphadenopathy. Adrenal glands are normal. Tiny esophageal hiatal hernia. Splenic artery calcification. Mild thoracic curve. Anterior hypertrophic changes thoracic spine. CT/CT lung screening [id number] IMPRESSION: LUNG-RADS: 2-Benign Appearance or Behavior FOLLOW UP: 12 Month: Continue annual screening with LDCT
== END 2024-07-18 11:01 | disposition home or self-care (01) ==
PROVIDERS: PCP Family Medicine; Visit Provider Nurse Practitioner Family
DX: Z12.2 Encounter for screening for malignant neoplasm of respiratory organs (principal); F17.210 Nicotine dependence, cigarettes, uncomplicated; R91.8 Other nonspecific abnormal finding of lung field; I70.0 Atherosclerosis of aorta; I25.10 Atherosclerotic heart disease of native coronary artery without angina pectoris; I70.8 Atherosclerosis of other arteries; M43.8X4 Other specified deforming dorsopathies, thoracic region; M89.38 Hypertrophy of bone, other site
CPT/HCPCS: 71271

== ENCOUNTER 2024-07-31 13:17 | Outpatient (CLI) | payer MEDICARE, SELFPAY ==
--- NOTE | 2024-07-31 13:20 | XR_ITS ---
WS: [id number] SCREENING DEXA SCAN [employer] CLINICAL INFORMATION: ASYMPTOMATIC MENOPAUSAL STATE/HTN COMPARISON: None. FINDINGS: The LEFT forearm bone mineral density measures 0.86. This corresponds to a T score score of -0.2 and Z score of 1.2. Left femoral neck bone mineral density measures 1.151 g/cm2. This corresponds to a T score of 1.1 and Z score of 2.1. Right femoral neck bone mineral density measures 1.140 g/cm2. This corresponds to a T score 1.1of and Z score of 2.0. Mean femoral neck bone mineral density measures 1.145 g/cm2. This corresponds to a T score of 1.1 and Z score of 2.1. XR/XR DEXA axial skeleton* [id number] IMPRESSION: Normal bone mineralization. Patient's FRAX calculated 10 year probability for major osteoporotic fracture i s 8.7% and osteoporotic hip fracture is 0.7%.
== END 2024-07-31 13:18 | disposition home or self-care (01) ==
PROVIDERS: PCP Nurse Practitioner Family; Visit Provider Nurse Practitioner Family
DX: Z78.0 Asymptomatic menopausal state (principal)
CPT/HCPCS: 77080

== ENCOUNTER 2024-10-10 09:59 | Outpatient (CLI) | payer MEDICARE, SELFPAY ==
--- NOTE | 2024-10-10 10:12 | XR_ITS ---
WS: [email or web address] Right knee, AP and lateral views, 10/10/2024 Clinical Data: PAIN IN R KNEE/CONTUSION OF R KNEE Comparison: Right knee, 01/28/2016 Findings: No fractures or dislocations are seen. There is medial joint compartment narrowing with spurring of the medial femoral condyle and medial tibial plateau. The lateral joint space is narrow. The right patella shows no irregularity. The soft tissues are normal. There is vascular calcification. XR/XR knee RT 1-2V [id number] Impression: Medial joint compartment narrowing of the right knee.
== END 2024-10-10 10:00 | disposition home or self-care (01) ==
PROVIDERS: PCP Nurse Practitioner Family; Visit Provider Nurse Practitioner Family
DX: S80.01XA Contusion of right knee, initial encounter (principal); X58.XXXA Exposure to other specified factors, initial encounter
CPT/HCPCS: 73560

== ENCOUNTER → 2024-10-28 08:35 | Outpatient (BNVA) | payer MEDICARE, SELFPAY | PROVIDERS: PCP Nurse Practitioner Family; Visit Provider Orthopaedic Surgery | DX: Z98.890 Other specified postprocedural states (principal); Z98.1 Arthrodesis status | CPT/HCPCS: 72100; 99213 ==

== ENCOUNTER → 2024-11-19 09:06 | Outpatient (BNVA) | payer MEDICARE, SELFPAY | PROVIDERS: PCP Nurse Practitioner Family; Visit Provider Specialist | DX: M25.561 Pain in right knee (principal) | CPT/HCPCS: 73560; 73565; 99204 ==

== ENCOUNTER 2024-12-03 10:21 | Outpatient (RCR) | payer MEDICARE, SELFPAY | END 2024-12-26 23:59 | disposition home or self-care (01) | LOC: SPT 10:21 | PROVIDERS: PCP Nurse Practitioner Family; Visit Provider Specialist | DX: M17.11 Unilateral primary osteoarthritis, right knee (principal) | CPT/HCPCS: 97110; 97161 ==

== ENCOUNTER 2024-12-27 05:00 | Outpatient (RCR) | payer MEDICARE, SELFPAY | END 2025-01-25 23:59 | disposition home or self-care (01) | LOC: SPT 05:00 | PROVIDERS: PCP Nurse Practitioner Family; Visit Provider Specialist | DX: M17.11 Unilateral primary osteoarthritis, right knee (principal) | CPT/HCPCS: 97110 ==

== ENCOUNTER 2025-01-07 13:41 | Outpatient (CLI) | payer MEDICARE, SELFPAY ==
--- NOTE | 2025-01-07 13:44 | MM_ITS ---
WS: [email or web address] VIEWS: MLO and CC views both breasts. 3D digital tomosynthesis is also included in this exam. Comparison made with prior exam of 05/28/2017, 12/17/2018, 07/18/2021, 09/06/2022, 12/27/2023.. Findings: There are scattered areas of fibroglandular density. No suspicious mass, tumor calcification or architectural distortion. Scattered stable appearing nodular densities noted bilaterally. MM/MM scr BI tomosynthesis [id number] Impression: BI-RADS: 2 - Benign FOLLOW-UP: 1 Year Follow-up This mammogram was also analyzed by the Computer Aided Detection System R2 Imag e Spectacle Truer.
== END 2025-01-07 13:42 | disposition home or self-care (01) ==
LOC: RAD 13:41
PROVIDERS: PCP Nurse Practitioner Family; Visit Provider Nurse Practitioner Family
DX: Z12.31 Encounter for screening mammogram for malignant neoplasm of breast (principal); R92.323 Mammographic fibroglandular density, bilateral breasts
CPT/HCPCS: 77063; 77067

== ENCOUNTER → 2025-01-15 10:42 | Outpatient (BNVA) | payer MEDICARE, SELFPAY | PROVIDERS: PCP Nurse Practitioner Family; Visit Provider Orthopaedic Surgery | DX: Z47.89 Encounter for other orthopedic aftercare (principal); Z98.1 Arthrodesis status | CPT/HCPCS: 99213 ==

== ENCOUNTER → 2025-01-28 11:10 | Outpatient (BNVA) | payer MEDICARE, SELFPAY | PROVIDERS: PCP Nurse Practitioner Family; Visit Provider Specialist | DX: M17.11 Unilateral primary osteoarthritis, right knee (principal) | CPT/HCPCS: 73560; 73565; 99214 ==

== ENCOUNTER 2025-02-18 09:25 | Outpatient (CLI) | payer MEDICARE, SELFPAY ==
--- NOTE | 2025-02-18 09:30 | CT_ITS ---
WS: [id number] CT RIGHT knee, noncontrast HISTORY: per [facility] protocol TECHNIQUE: Protocol for [facility] total knee replacement has been obtained. This includes axial imaging through the RIGHT hip, RIGHT knee and RIGHT ankle. DLP: 1000.88 mGy.cm COMPARISON: Radiograph 01/28/2025 Screw fixation to the SI joints. No significant narrowing of the RIGHT hip joint. Muscle atrophy surrounding the RIGHT hip. There are soft tissue calcifications. Vascular calcifications. RIGHT knee: Moderate tricompartment joint space narrowing. Hypertrophic osteophytes. Small joint effusion. Lateral subluxation of the patella. Mild midfoot arthropathy. CT/CT knee RT [facility] [id number] IMPRESSION: CT imaging provided for [facility] robotic total knee replacement.
== END 2025-02-18 09:26 | disposition home or self-care (01) ==
LOC: RAD 09:27
PROVIDERS: PCP Nurse Practitioner Family; Visit Provider Specialist
DX: M17.11 Unilateral primary osteoarthritis, right knee (principal); M62.58 Muscle wasting and atrophy, not elsewhere classified, other site; M61.9 Calcification and ossification of muscle, unspecified; I99.8 Other disorder of circulatory system
CPT/HCPCS: 73700